=== PATIENT | female | born 1975 | race Caucasian/White ===

== ENCOUNTER 2020-02-29 23:25 | Emergency (ER) | payer MEDICARE, SELFPAY ==
[2020-02-29 23:31] VITALS: BP 157/48; PULSE 119; RESP 20; TEMP 37.1; O2SAT 97
--- NOTE | 2020-02-29 23:45 | DI.CT_ITS ---
EXAM: CT ABDOMEN PELVIS W CLINICAL HISTORY: abdominal pain, left sided. COMPARISON: No exams were available for comparison FINDINGS: CT examination of the abdomen and pelvis was performed with intravenous infusion of 100 cc of Omnipaq ue 350. Images obtained through the lung bases are unremarkable. The liver and spleen appear normal as visualized, although portions of the spleen are obscured by met allic artifact. Splenic contour is lobulated laterally, consistent with known prior splenic injury. N o prior films available for comparison. No free fluid in the left upper quadrant or elsewhere in the abdomen. No gross splenic hematoma. Pancreas appears normal. Gallbladder and bile ducts are CT normal. Adrenals and kidneys are unremarka ble. No urinary tract calcification or obstruction. No renal mass. Urinary bladder is nearly empty. Abdominal wall intact with no hernia except for a tiny fat containing umbilical hernia. The appendix is normal. There is a moderate quantity of fecal material throughout the colon. No diver ticulitis or bowel obstruction. Mild prominence of small bowel wall in the jejunal region, question e nteritis. Abdominal aorta is of normal diameter and no major vascular abnormality is seen. Uterus is mildly enlarged and heterogeneous consistent with uterine fibroid. The ovaries have a emily l follicular appearance. IMPRESSION: No evidence of acute intra-abdominal process except for slight nonspecific wall thickening of the jej unum, consider enteritis.
--- NOTE | 2020-03-01 00:10 | W.ED.GENAD ---
Discharge Plan Disposition Patient Disposition: HOME Condition: Good Discharge Details Chief Complaint: GI Bleed Clinical Impression: Abdominal pain Primary Care Provider: None,None ED Provider: Geraldo Schmitt Meds and New Rx's Prescriptions: No Action melatonin 10 mg Tablet 30 mg PO HS PRNRF: 0 Discharge Instructions Instructions: Abdominal Pain (ED) Additional Instructions: Work-up tonight with nothing significantly found. Laboratory studies for the most part look fine. CT scan suggest possible right ovarian cyst and uterine fibroid. These can be evaluated by ultrasound on an outpatient basis. We will have care management help establish primary care here in the area. Will need follow-up with him in the next few weeks. Return to ED for fever, persistent vomiting, grossly bloody stool, worsening abdominal pain, difficulty breathing, other concerns or problems. Referrals: Care Management [Provider Group] Discharge Data Discharge Date/Time-TO BE ENTERED AT DEPARTURE: 03/01/20 01:30 Medical Decision Making <HENRY Jones - Last Filed: 03/02/20 23:20> Is a 44-year-old patient presenting to the emergency room this evening for concerns of an episode of rectal bleeding which occurred this evening. Patient reports when she was wiping after moving her bowels she had a moderate amount of bright red blood noted on the toilet paper. Patient does report clots associated. Denies any blood in the toilet bowl. Patient reports a single episode noted. Patient is complaining of abdominal bloating in the last 2 days. Patient is complaining of left-sided abdominal pain. Patient reports chronic nausea unchanged. Denies obvious vomiting. Has been eating and drinking without difficulty. Patient denies any obvious dizziness, lightheadedness or feeling of passing out. Patient denies any history of rectal bleeding in the past. Patient does report mild radiation of pain to the left shoulder. Patient does report a history of splenic laceration resulting from trauma. Patient denies obvious chest pain, difficulty breathing or shortness of breath at this time. Denies upper respiratory symptoms. Patient does report mild left flank pain. Denies dysuria, urgency or frequency of urination. Patient does report intermittent night sweats. Patient reports night sweats preceded IV drug use. Patient denies any measured fevers or chills but does report night sweats. No complaints of cough. Denies travel. Patient admits to using heroin intermittently for the last 2 weeks. Patient's history is scattered, required significant focusing of her HPI. Patient has several complaints which have been either transient or intermittent. Patient has no PCP currently. When I have asked this patient to focus the reasons for which she comes to the emergency room today she reports her primary complaint is related to her episode of rectal bleeding associated abdominal pain and bloating for the last 2 days. On exam patient is noted to be tachycardic with a heart rate of 119 although is appearing extremely anxious. We will plan to recheck and provide IV fluids. Patient has no notable increase in respiratory effort or difficulty breathing. Has clear breath sounds currently. No murmur present. Patient has no significant CVA tenderness bilaterally. Patient has no obvious abdominal distention although she reports her abdomen feels bloated. Patient's abdomen is soft. She does have notable abdominal pain with palpation of the left upper and left lower quadrants. Patient has no significant right-sided abdominal pain with palpation. Lacks peritoneal signs, rebound or guarding. No evidence of abdominal bruising. Rectal exam does reveal mild hemorrhoid swelling but no active bleeding or thrombosis. No obvious rectal pain on exam. Rectal tone present normal. guaiac testing is positive. No trevon blood noted Patient status post hysterectomy. Urine negative. Ready for CT We will plan to check baseline labs, include lipase and check CT of patient's abdomen due to complaints of abdominal pain. Will provide 1 L of IV fluid given patient's vital signs and tachycardia. Patient's initial labs reveal no leukocytosis or shift. Sodium noted to be 134, potassium 5.2. Patient's BUN noted to be 24, creatinine 1.22 and GFR 48. Patient's LFTs are normal, bilirubin normal. Lipase is normal. Urinalysis reveals no nitrites or leukocyte esterase, small amount of blood, contaminated urine sample. Urine casts are noted. Patient signed out pending ultimate disposition, CT results. <Geraldo Schmitt MD - Last Filed: 03/01/20 01:28> Patient signed out to me pending labs and CAT scan. She had presented with a myriad of complaints but chief complaint and what brought her in was some rectal bleeding and abdominal pain. Initially tachycardic but also quite anxious. Not febrile here. At time of my reevaluation she is sitting comfortably on the stretcher doing a word find. She is requesting discharge. Her laboratory studies are unremarkable except for some elevated kidney function which may be related to some mild dehydration. She has received IV fluids here and is drinking orally without difficulty. CT scan of the abdomen pelvis mostly unremarkable. Evidence of a probable right ovarian cyst as well as anterior uterine fibroid. These can be evaluated by ultrasound as outpatient. She is living up here now. She does not have primary care established. Will be discharged home tonight. Will have care management work on finding her primary care for follow-up in the next few weeks. She may return to ED for any worsening abdominal pain, vomiting, grossly bloody diarrhea, fever other concerns or problems. Lab Data Lab results reviewed: Yes I reviewed the patient's lab results. HPI <HNERY Jones - Last Filed: 03/02/20 23:20> General Date/Time Provider Initiated Documentation: 02/29/20 23:30. HPI Narrative: Patient is a 44-year-old presenting to the emergency room for complaints of rectal bleeding tonight which was noted when she wiped. Patient reports a large amount of blood with clots on the toilet paper but denies blood in the toilet bowl. Patient does not feel this was related to vaginal bleeding. Patient is complaining of left-sided abdominal pain. Patient does report radiation of the pain toward her left shoulder. Patient is complaining of abdominal bloating in the last 2 days. Patient is a current heroin user, has been using for the last 2 weeks. Has used today. Patient reports complaints of cold sweats at night. Denies any measured fevers. Patient denies chest pain or difficulty breathing at this time. Patient does report some left-sided flank pain. Patient describes this left-sided flank pain is with deep breathing. Patient denies any history of rectal bleeding historically. Patient denies any dizziness currently. Patient reports she does have a history of splenic laceration secondary to trauma. Patient describes her abdominal pain is somewhat intermittent. Has been able to eat and drink without difficulty. Denies obvious changes in her stool. Patient does report some worsening abdominal pain with attempting to have bowel movements. Patient describes abdominal pain when moving bowels in the lower abdomen. Denies obvious rectal pain with bowel movements. Denies dizziness, weakness, fatigue or feeling of syncope. Related Data Home Medications Medication Instructions Recorded Confirmed melatonin 30 mg PO HS PRN 03/01/20 03/01/20 Allergies Allergy/AdvReac Type Severity Reaction Status Date / Time aspirin Allergy Anaphylaxsi Unverified 03/01/20 00:13 s acetaminophen [From Tylenol] AdvReac Anaphylaxsi Unverified 03/01/20 00:13 s General Stated Complaint: GI Bleed LEOBARDO: 3 Review of Systems <HENRY Jones - Last Filed: 03/02/20 23:20> All systems reviewed & are unremarkable except as noted in HPI and below Constitutional Constitutional: Denies chills, Denies fever(s), Reports headache(s) (Intermittent), Reports night sweats and Denies poor appetite ENT Ears, Nose, Mouth, and Throat: Denies vertigo, Denies dizziness, Reports headache(s) (Intermittent), Denies nasal congestion and Denies sore throat Cardiovascular Cardiovascular: Denies syncope and Denies dyspnea Respiratory Respiratory: Denies cough, Reports pain on inspiration (Left flank), Denies dyspnea and Denies wheezing Gastrointestinal Gastrointestinal: Reports abdominal pain (Left-sided), Reports hematochezia (This evening when wiping), Denies change in bowel habits, Denies change in stool character, Denies constipation, Denies heartburn, Denies diarrhea, Reports nausea (Patient reports this is chronic, unchanged) and Denies vomiting Genitourinary Genitourinary: Denies abnormal menses, Denies abnormal vaginal bleeding, Denies amenorrhea, Denies hematuria, Denies difficulty voiding, Denies urinary hesitancy and Denies urinary urgency Neurologic Neurologic: Denies vertigo, Denies dizziness, Denies syncope and Reports headache(s) (Intermittent) Allergic/Immunologic Allergic/Immunologic: Denies wheezing PFSH <HENRY Jones - Last Filed: 03/02/20 23:20> Medical History (Updated 03/01/20 @ 01:26 by Geraldo Schmitt MD) Hepatitis C (Chronic) Heroin abuse (Acute) Lung tumor (Acute) Spleen disorder (Acute) Surgical History (Updated 03/01/20 @ 01:03 by Esha Sheikh) Tubal ligation status (Acute) Social History Drug use: Binges Substance use type: heroin Details: pt purchasing methoadone and suboxone on the street to try to detox herself. Pt states she used heroin two weeks ago Do you feel safe at home: Yes Do you feel safe in your relationship?: Yes Additional Social history: living at [facility] with boyfriend Exam <HENRY Jones - Last Filed: 03/02/20 23:20> Narrative Exam Narrative: CONST: Well hydrated. Alert and oriented. HENMT: Head nomocephalic, normal to inspection. Atraumatic. Hearing grossly normal. Oral mucosa normal. Tounge normal. Normal posterior oropharynx. Uvula midline. EYES: General normal appearance. Alignment normal. Eyelids normal. Conjunctiva normal. Sclera normal. Constricted pupils NECK: Normal visual inspection. FROM. No lymphadenopathy. Trachea midline. No Midline tenderness. CHEST: Normal insepection of the chest. RESP: Normal respiratory effort. Speaking full sentences. No cough. No wheezing. No retractions. Clear to auscaltation. Breath sound equal and present bilaterally. CARDIO: No JVD. Normal PMI. Regular Rate. Regular Rhythm. Normal peripheral pulses. No murmur GI: Normal inspection of abdomen. No distension. Soft. Moderate abdominal tenderness noted in the left upper quadrant and left lower quadrant. Bowel sounds present in all 4 quadrants. No rebound. No gaurding. MUSCULOSKELETAL: Normal Gait. FROM of all extremities. No distal edema of lower extremities present. SKIN: Normal. Dry. No rashes. Areas of recent IV drug use noted. No signs of surrounding cellulitis or abscess NEURO: Alert and awake. Speech clear. PSYCH: Anxious. Cooperative. Course <HENRY Jones - Last Filed: 03/02/20 23:20> Vital Signs Vital signs: Vital Signs Temperature 37.1 C 02/29/20 23:31 Pulse 119 H 02/29/20 23:31 Respiratory Rate 20 02/29/20 23:31 Blood Pressure 157/48 H 02/29/20 23:31 Pulse Oximetry 97 02/29/20 23:31 Temperature 37.1 C 02/29/20 23:31 Temperature Source Skin 02/29/20 23:31 Pulse 119 H 02/29/20 23:31 Respiratory Rate 20 02/29/20 23:31 Respiratory Effort Non-Labored 02/29/20 23:36 Blood Pressure 157/48 H 02/29/20 23:31 Pulse Oximetry 97 02/29/20 23:31 Pain Level 9 02/29/20 23:31 Lab/Test Results Lab/Test Results: Laboratory Tests Range/Units 03/01/20 23:56 Serum HCG, Qual Cancelled Sign Out <HENRY Jones - Last Filed: 03/02/20 23:20> Sign Out Data: Sign Out Comment: Signout pending CT results and disposition. Last updated by Brittney Packer PA at 03/01/20 00:52
[2020-03-01 00:16] LABS: Bilirubin Negative (Negative); Blood Small (Negative); Clarity Cloudy (Clear); Glucose Negative (Negative); Ketones Negative (Negative); Leukocyte Esterase Negative (Negative); Nitrite Negative (Negative); Specific Gravity >= 1.030 (1.005-1.025); Urobilinogen 0.2 EU/dL (Up TO 0.2)
[2020-03-01 00:23] LABS: Abs Immature Grans 0.03 k/cumm (0.0-0.09); Absolute Basophil Count 0.04 k/cumm (0.0-0.2); Absolute Eosinophil Count 0.32 k/cumm (0.0-0.7); Absolute Lymphocyte Count 2.82 k/cumm (1.2-3.4); Absolute Monocyte Count 0.71 k/cumm (0.11-0.7); Absolute Neutrophil Count 4.65 k/cumm (1.2-6.7); Basophils % 0.5; Eosinophils % 3.7; HCT 36.2 % (36.0-46.0); HGB 12.1 g/dL (12.0-15.5); Immature Grans % 0.4 %; Lymphocytes % 32.9; Mean Corp. HGB Concentration 33.4 g/dL (32.0-36.0); Mean Corpuscular Hemoglobin 28.4 pg (27.0-33.0); Mean Platelet Volume 11.7 fL (8.0-11.0); Monocytes % 8.3; Neutrophils % 54.2; Platelet Count 147 x1000/uL (130-400); RBC 4.26 m/cumm (4.00-5.20); RBC Distribution Width 15.3 % (11.7-14.6); White Blood Cell Count 8.57 k/cumm (4.4-10.8)
[2020-03-01 00:29] LABS: Bacteria Few HPF (Negative); C & S Indicated? No/Sq. Contamination; Crystals Negative HPF (Negative); Epithelial Cells Many HPF (Negative); Mucus Trace (Negative); RBC 0-2 HPF (0-2)
[2020-03-01] MEDS: Omnipaque 350 MG/ML 100 ML BTL IJ (00:30)
[2020-03-01 00:39] LABS: ALT 20 U/L (14-59); AST 34 U/L (15-37); Albumin 3.6 g/dL (3.4-5.0); Alkaline Phosphatase 73 U/L (46-116); Anion Gap 8.7 mmol/L (3-11); BUN 24 mg/dL (7-18); Bilirubin, Total 0.2 mg/dL (0.2-1.0); CO2 22.3 mmol/L (21.0-32.0); CREATININE 1.22 mg/dL (0.55-1.02); Calcium 8.4 mg/dL (8.5-10.1); Chloride 103 mmol/L (98-107); Glucose 88 mg/dL (74-106); Lipase 94 U/L (73-393); Sodium 134 mmol/L (136-145); Total Protein 8.1 g/dL (6.4-8.2)
[2020-03-01 00:40] LABS: Potassium 5.2 mmol/L (3.5-5.1)
[2020-03-01] MEDS: Normal Saline 1,000 ML 1000 ML IV (00:50)
[2020-03-01] MEDS: Normal Saline - Diluent 50 ML VIAL IV (00:50)
[2020-03-01] MEDS: Normal Saline Flush 10 ML SYR IVP (00:51)
--- NOTE | 2020-03-01 01:07 | DI.VRAD_ITS ---
PROCEDURE INFORMATION: Exam: CT Abdomen And Pelvis With Contrast Exam date and time: 02/29/2020 12:39 AM Age: 44 years old Clinical indication: Localized; Prior surgery; Surgery date: 6+ months; Surgery type: Spleen ruptured twice, tubal ligation; Patient HX: Left sided abdominal pain, nausea, blood in stool TECHNIQUE: Imaging protocol: Computed tomography of the abdomen and pelvis with intravenous contrast. Radiation optimization: All CT scans at this facility use at least one of these dose optimization techniques: automated exposure control; mA and/or kV adjustment per patient size (includes targeted exams where dose is matched to clinical indication); or iterative reconstruction. Contrast material: OMNIPAQUE 350; Contrast volume: 100 ml; Contrast route: IV; COMPARISON: No relevant prior studies available. FINDINGS: Lungs: Stranded soft tissue density at the lateral left lung base is consistent with postinflammatory change with minimal focal scarring also seen at the anterior right lung base and posteromedial left lung base. Heart size is normal and no pleural or pericardial effusions are detected. Liver: Liver is normal in size and configuration with no focal hepatic lesions detected. Gallbladder and bile ducts: Gallbladder is normal in appearance and there is no abnormal dilatation of intrahepatic biliary radicles. Pancreas: No pancreatic mass or evidence of inflammatory process. Spleen: Surgical clips are seen at the splenic hilum and no discrete splenic mass identified. Adrenals: Normal appearance bilaterally. Kidneys and ureters: Kidneys demonstrate bilateral excretion of contrast material without hydronephrosis or renal mass. Ureters are normal in course and caliber bilaterally. Stomach and bowel: Segments of large and small bowel are normal in appearance and there is no evidence of obstruction or perforation. Appendix: No evidence of appendicitis. Intraperitoneal space: No free intraperitoneal fluid or evidence of pneumoperitoneum detected. Vasculature: The abdominal aorta tapers distally to the bifurcation without aneurysm. Lymph nodes: No adenopathy detected. Bladder: Nondistended but otherwise unremarkable. Reproductive: 11 mm hypodensity in the anterior right adnexal region may represent ovarian cyst and a 17 mm ovoid hypodensity involving the anterior myometrium inferiorly may represent a uterine fibroid. Bones/joints: No acute osseous lesions are detected. Soft tissues: Unremarkable. IMPRESSION: 1. A suspected 11 mm right ovarian cyst and probable 17 mm anterior uterine fibroid could be followed sonographically. 2. There is no other evidence of an acute abdominal pelvic process. Dictated and Authenticated by: Benito Anglin MD. Ordering:TARIQ Lugo MD
[2020-03-01 01:22] VITALS: BP 128/62; PULSE 93; RESP 16; O2SAT 98
--- NOTE | 2020-03-01 01:22 | NUR.NOTE ---
Nursing Note:COPY MADE AND PUT IN BOX FOR CM TO ESTABLISH PCP AND MAKE APPT WITHIN NEXT COUPLE OF WEEKS
--- NOTE | 2020-03-01 10:55 | CMPROGNOTE_ITS ---
- If Service Date Differs Date of service: 03/01/20 Time of Service: 10:55 Care Management Progress Note Sherin was seen in the ED for possible GI Bleed. At the ED provider's request, CM coordinated a referral to [facility] to assist patient in establishing care with a PCP.
== END 2020-03-01 01:30 | disposition home or self-care (01) ==
PROVIDERS: Physician Assistant; Emergency Provider Emergency Medicine
DX: R10.12 Left upper quadrant pain (principal); R10.32 Left lower quadrant pain; R93.5 Abnormal findings on diagnostic imaging of other abdominal regions, including retroperitoneum
CPT/HCPCS: 80053; 81025; 83690; 96360; 99285; 74177; 81003; 81015; 84703; 85025; 99284; J3490

== ENCOUNTER 2022-07-01 00:39 | Inpatient (IN) | payer MEDICARE, SELFPAY ==
[2022-07-01] VITALS (30 sets, daily range): BP systolic 106–177; BP diastolic 61–140; PULSE 75–113; RESP 9–26; TEMP 36.4–36.7; O2SAT 96–98
--- NOTE | 2022-07-01 00:34 | NUR.NOTE ---
Nursing Note: Patient states I need to call my fiance so I can leave. When further questioned patient states I hate hospitals. Patient given cordless phone to place phone call. Patient kicked the provider out of the room during assessment so she can make a phone call.
--- NOTE | 2022-07-01 00:48 | ED.GENADUL_ITS ---
Discharge Plan Disposition Patient Disposition: [facility] INPATIENT Condition: Stable Discharge Details Chief Complaint: Abd Prob Clinical Impression: Depression, Nausea & vomiting, Acute hypokalemia, Abdominal pain Primary Care Provider: None,None ED Provider: Phil Trevino Medical Decision Making 46 yo female with hx of substance abuse who states she relapsed into opiates a month or so ago comes in with n/v since Friday. She states she started to use iv fentanyl and also smoking cocaine. She states she started to have n/v Friday and occurred throughout the weekend. She used fentanyl and cocaine aroud 11pm and made her feel mildly better, called ems and was brought here. She states when she does vomit she has upper abdomen pain. She denies chest pain, dyspnea, fevers, chills. She is in no distress, has as soft nontender abdomen, normal motor and sensation. Suspect this is likely related to her drug use, will check cbc, cmp, treat with zofran and ativan as she does appear mildly anxious and reassess. Given lack of abdomen tenderness do not feel ct abdomen/pelvis indicated pt stated she was having severe ruq pain and on reassessment is tender in the ruq. discussed with her and will order ct, she states she has had a tubal ligation and denies chance of imaging shows no acute findings, she is still not tolerating po. she appears to have acute hepatitis on labs and k of 2.8, repletion ordered. She did make vague statements that she has had thoughts of self harm due to relationship issues. She can't be medically cleared yet as she has electrolyte abnormalities and acute hepatitis not tolerating po. cpso ordered, discussed with hospitalist, will admit for continued management and [facility] screening when medically cleared Differential Diagnosis Differential Diagnosis: drug withdrawal vs drug reaction, electrolyte abnormality Imaging Data Radiologic Study: Attestation: I personally reviewed and interpreted this imaging study as follows: Imaging: CT Scan Radiologist's impression: IMPRESSION: 1. 1.1 cm right ovarian follicle with an adjacent 1.5 cm peripherally enhancing right ovarian corpus luteum. No gross free pelvic fluid. 2. Moderate gallbladder distention. No calcified gallstones or biliary dilatation. 3. No acute bowel pathology demonstrated. Lab Data Lab results reviewed: Yes I reviewed the patient's lab results. HPI General Mode of arrival: EMS . Date/Time Provider Initiated Documentation: 07/01/22 00:47 . Limitations to Documentation: no limitations . Information obtained by: patient . History of Present Illness 46 year old F presents to the emergency department with the chief complaint of n/v, described as moderate, Patient started experiencing this day(s) (2) and it has been constant. No relieving factors improve symptom(s), No exacerbating factors reported . Patient notes no other symptoms.. Patient did receive the following treatments prior to arrival, none Related Data Allergies Allergy/AdvReac Type Severity Reaction Status Date / Time aspirin Allergy Anaphylaxsi Unverified 07/01/22 00:27 s acetaminophen [From Tylenol] AdvReac Anaphylaxsi Unverified 07/01/22 00:27 s General Stated Complaint: Abd Prob LEOBARDO: 3 Review of Systems All systems reviewed & are unremarkable except as noted in HPI and below Constitutional Constitutional: Denies chills, Denies fever(s) and Denies weakness Eyes Eyes: Denies loss of vision Cardiovascular Cardiovascular: Denies chest pain and Denies dyspnea Respiratory Respiratory: Denies cough and Denies dyspnea Genitourinary Genitourinary: Denies dysuria Musculoskeletal Musculoskeletal: Denies joint swelling Neurologic Neurologic: Denies loss of vision and Denies weakness PFSH All Active Problems (Updated 07/01/22 @ 03:13 by Phil Trevino MD) Depression (Chronic) Nausea & vomiting (Acute) Acute hypokalemia (Acute) Abdominal pain (Acute) Medical History (Updated 07/01/22 @ 03:13 by Phil Trevino MD) Hepatitis C Heroin abuse Lung tumor Spleen disorder Surgical History (Updated 03/01/20 @ 01:03 by Esha Manley) Tubal ligation status Social History Smoking/Tobacco Use Status: Current every day Tobacco Type: cigarettes Smoking risk assessment performed?: Yes Alcohol Intake: never Drug use: Binges Substance use type: crack/cocaine and heroin Details: pt purchasing methoadone and suboxone on the street to try to detox herself. Pt states she used heroin two weeks ago Do you feel safe at home: Yes Do you feel safe in your relationship?: Yes Additional Social history: living at [facility] with boyfriend Exam Const General: no acute distress Orientation: alert HENMT Head: normal to inspection Ears: external ears normal General nose exam: external nose normal Mouth: moist mucous membranes Eyes General: appearance normal, both eyes and all related structures Neck Neck: normal visual inspection Resp Effort & Inspection: normal respiratory effort and able to speak in complete sentences Cardio Rate: regular rate GI Palpation: soft and nontender Skin General skin exam: no rashes or lesions noted Neuro General: patient alert and patient oriented x3 Extrem General: normal to inspection Psych Mental Status: mental status grossly normal Course Vital Signs Vital signs: Vital Signs Temperature 36.6 C 07/01/22 00:20 Pulse 102 H 07/01/22 00:20 Respiratory Rate 16 07/01/22 00:20 Blood Pressure 176/93 H 07/01/22 00:20 Pulse Oximetry 98 07/01/22 00:20 Temperature 36.6 C 07/01/22 00:20 Temperature Source Temporal Artery Scan 07/01/22 00:20 Pulse 102 H 07/01/22 00:20 Respiratory Rate 16 07/01/22 00:20 Respiratory Effort Non-Labored 07/01/22 00:24 Blood Pressure 176/93 H 07/01/22 00:20 Blood Pressure Position Supine 07/01/22 00:20 Pulse Oximetry 98 07/01/22 00:20 Oxygen Delivery Method Room Air 07/01/22 00:20 Oxygen Flow Rate 0 07/01/22 00:20 Pain Level 9 07/01/22 00:24
[2022-07-01 01:06] LABS: Abs Immature Grans 0.07 10^3/uL (0.0-0.06); Absolute Basophil Count 0.11 10^3/uL (0.0-0.2); Absolute Monocyte Count 1.24 10^3/uL (0.1-0.8); Basophils % 0.7; Eosinophils % 0.1; HCT 31.3 % (36.0-46.0); HGB 9.1 g/dL (11.2-15.7); Immature Grans % 0.5; Lymphocytes % 14.4; MCH 17.9 pg (27.0-33.0); MCHC 29.1 % (32.0-36.0); MCV 62 fL (80-95); MPV 9.9 fL (8.0-11.0); Neutrophils % 76.3; RBC 5.09 10^6/uL (3.93-5.22); RDW 20.1 % (11.7-14.6); RDW-SD 41.5 fL; WBC 15.51 10^3/uL (4.4-10.8)
[2022-07-01 01:09] LABS: Absolute Eosinophil Count 0.02 10^3/uL (0.0-0.7); Absolute Lymphocyte Count 2.23 10^3/uL (1.2-3.4); Absolute Neutrophil Count 11.83 10^3/uL (1.2-6.7)
[2022-07-01] MEDS: LORazepam 20 MG/10 ML VIAL IVP ×3 (01:20→08:55)
[2022-07-01] MEDS: Ondansetron 4 MG/2 ML VIAL IVP (01:21)
[2022-07-01] MEDS: Normal Saline 1,000 ML 1000 ML IV (01:21)
[2022-07-01 01:22] LABS: Albumin 4.1 g/dL (3.4-5.0); Alkaline Phosphatase 105 U/L (46-116); Anion Gap 13.7 mmol/L (3-11); BUN 26 mg/dL (7-18); Bilirubin, Total 0.6 mg/dL (0.2-1.0); CO2 25.3 mmol/L (21.0-32.0); CREATININE 1.5 mg/dL (0.55-1.02); Calcium 9.2 mg/dL (8.5-10.1); Chloride 94 mmol/L (98-107); Estimated GFR 37.55 (mL/min/1.73m2); Glucose 129 mg/dL (74-106); Magnesium 1.8 mg/dL (1.8-2.4); Sodium 133 mmol/L (136-145); Total Protein 9.4 g/dL (6.4-8.2)
--- NOTE | 2022-07-01 01:30 | DI.CT_ITS ---
Exam(s) CT ABDOMEN PELVIS W EXAM: CT ABDOMEN PELVIS W CLINICAL HISTORY: abdominal pain TECHNIQUE: Imaging Protocol: Axial computed tomography images with coronal and sagittal reformatted images were created and reviewed CONTRAST MATERIAL: Intravenous: Omnipaque 350 Contrast volume:100 mL Oral: No COMPARISON: CT CT ABDOMEN PELVIS W from 03/01/2020 FINDINGS: ABDOMEN: Lung Bases: Normal where visualized. Liver: Normal density. No measurable mass. Portal, Superior Mesenteric, and Splenic Veins: Unremarkable. Gallbladder and Biliary Tract: No radiodense calculus or dilation. Pancreas: Normal density, no abnormal calcifications or inflammatory process. Spleen: Normal. Adrenals: No masses seen. Kidneys: Normal size, contour and axis. No radiodense stones or obstructive uropathy. No masses seen. Abdominal Aorta: Abdominal portion non-dilated. Bowel: No obstruction or bowel wall thickening. No evidence of appendicitis. Peritoneal Cavity: No ascites, collection or mesenteric inflammatory response. No free air. Lymph Nodes: Within normal limits. Bones: Within normal limits for the patient's age. Soft Tissues: Unremarkable. PELVIS: Bladder: Symmetric distention, no gross wall thickening. Reproductive Organs: There is a round 2.1 cm uterine mass likely reflecting a fibroid. This was pres ent on the prior examination. Lymph Nodes: Within normal limits. Bones: Within normal limits for the patient's age. IMPRESSION: No acute abdominal or pelvic process. RADIATION DOSE DELIVERED: 842.8mGy.cm Total DLP DATA REPOSITORY: All CT scans at this facility are submitted to the National Radiology Data Registry (NRDR) Dose Index Registry (DIR) with the [employer] (ACR). RADIATION OPTIMIZATION: All CT scans at this facility use at least one of these dose optimization te chniques: automated exposure control; mA and/or kV adjustment per patient size (includes targeted exa ms where dose is matched to clinical indication); or iterative reconstruction.
[2022-07-01 01:36] LABS: Diff Comment RBC Morph Reviewed; Platelet Count 780 10^3/uL (130-400)
[2022-07-01 01:37] LABS: Anisocytosis 2+; Microcytosis 2+
[2022-07-01 01:39] LABS: Potassium 2.8 mmol/L (3.5-5.1)
[2022-07-01 01:52] LABS: ALT 1972 U/L (14-59); AST 2126 U/L (15-37); ETHANOL BLOOD < 3.0 mg/dL (<10)
[2022-07-01] MEDS: Omnipaque 350 MG/ML 100 ML BTL IJ (01:58)
[2022-07-01] MEDS: Normal Saline Flush 10 ML SYR IVP ×2 (02:16→08:54)
[2022-07-01] MEDS: POTASSIUM CHLORIDE 20 MEQ/100 ML BAG 50 MEQ (02:29)
--- NOTE | 2022-07-01 02:40 | DI.VRAD_ITS ---
PROCEDURE INFORMATION: Exam: CT Abdomen And Pelvis With Contrast Exam date and time: 07/01/2022 2:01 AM Age: 46 years old Clinical indication: Nausea and vomiting; Abdominal pain; Localized; Left; Prior surgery; Surgery date: 6+ months; Surgery type: HX of spleen rupture TECHNIQUE: Imaging protocol: Computed tomography of the abdomen and pelvis with contrast. Radiation optimization: All CT scans at this facility use at least one of these dose optimization techniques: automated exposure control; mA and/or kV adjustment per patient size (includes targeted exams where dose is matched to clinical indication); or iterative reconstruction. Contrast material: OMNIPAQUE 350; Contrast volume: 100 ml; Contrast route: INTRAVENOUS (IV); COMPARISON: CT ABDOMEN PELVIS W 03/01/2020 12:24 AM FINDINGS: Liver: Possible fatty infiltration of the liver, difficult to confidently diagnose by CT imaging after administration of intravenous contrast. Gallbladder and bile ducts: Moderate gallbladder distension. No calcified gallstones or biliary dilatation. Pancreas: Normal appearing pancreas. Spleen: Mild morphologic deformity of the spleen in keeping with the provided history of prior splenic injury. Surgical material adjacent to the spleen. Correlation with surgical history recommended. Adrenal glands: Normal appearing adrenal glands. Kidneys and ureters: Normal appearing kidneys. No hydronephrosis. No obstructing ureteral stones. Stomach and bowel: No oral contrast. Stomach partially decompressed. No small bowel dilatation to suggest obstruction. Cecum located in the right upper quadrant suggesting free mobility on an independent mesentery. Normal-appearing colon. No evidence of diverticulitis or colitis. Appendix: Normal appendix, unusually located in the anterior mid abdomen. Intraperitoneal space: No gross ascites or free air. Vasculature: Normal caliber abdominal aorta. Lymph nodes: No pathologically enlarged mesenteric, retroperitoneal, or pelvic sidewall lymph nodes. Urinary bladder: Urinary bladder partially collapsed but grossly unremarkable, as seen. Reproductive: Anteverted uterus, normal in size. 1.8 cm x 1.9 cm x 2.1 cm relatively hyperdense masslike finding in the anterior uterine wall, image 49 of series 6, possibly a leiomyoma but not well characterized by the current exam. Ovaries partially obscured but normal in size. 1.1 cm right ovarian follicle with an adjacent 1.5 cm peripherally enhancing right ovarian corpus luteum. Bones/joints: No acute fracture seen among the bones of the abdomen or pelvis. Spinal degenerative change with small Schmorl's nodes at several levels. Soft tissues: Tiny fat-containing ventral hernia at the umbilicus, doubtful clinical significance. IMPRESSION: 1. 1.1 cm right ovarian follicle with an adjacent 1.5 cm peripherally enhancing right ovarian corpus luteum. No gross free pelvic fluid. 2. Moderate gallbladder distention. No calcified gallstones or biliary dilatation. 3. No acute bowel pathology demonstrated. Dictated and Authenticated by: Gadiel Ferguson MD. Ordering:[id number] Villarreal MD
[2022-07-01 02:53] LABS: HCG Qual (Serum) Negative
[2022-07-01 03:04] LABS: Salicylate < 2.8 mg/dL (<2.8)
[2022-07-01 03:05] LABS: Acetaminophen < 2 ug/mL (10-30)
[2022-07-01 04:02] LABS: INR 1.5 (0.9-1.1); PTT Activated 26.3 sec (21.0-27.5); Prothrombin Time 14.3 sec (9.3-11.0)
[2022-07-01] MEDS: Normal Saline 1,000 ML 150 ML IV (04:30)
--- NOTE | 2022-07-01 06:09 | HPE_ITS ---
Date of service: 07/01/22 Time of Service: 06:10 Assessment and Plan Assessment and plan (1) Abdominal pain: Start date: 07/01/22 Status: Acute Assessment and plan: This is a 46-year-old lady with presentation of abdominal pain with nausea and vomiting along with dehydration secondary to fluid loss over the last 4 days. She is having right upper quadrant abdominal pain and we will consult surgery with ultrasound of the gallbladder to be performed this morning. CT of the abdomen was abnormal but difficult to assess for acute processes. IV hydration and follow-up labs trending liver functions and electrolytes repleting electrolytes as needed. She is a full code. (2) Nausea & vomiting: Start date: 07/01/22 Status: Acute Assessment and plan: Antiemetics and IV hydration with bowel rest. Patient will be placed on PPI. (3) Acute hepatitis: Start date: 07/01/22 Status: Acute Assessment and plan: Acute elevation of ALT and AST with PT/INR also elevated but bilirubin normal. This appears to be an acute process with hepatitis screen sent for evaluation. Patient has a history of previous hep C infection which was treated and cleared but is now reusing IV street drugs. (4) Acute hypokalemia: Start date: 07/01/22 Status: Acute Assessment and plan: Replete with IV fluids and monitor labs and supplement as indicated. (5) Depression: Status: Chronic Assessment and plan: Patient has chronic depression and is expressing some thoughts of harming self or suicidal ideation which should be evaluated once medically cleared. No seeking mental health will be consulted by the day hospitalist once stabilized. History of Present Illness History of Present Illness Chief Complaint: Nausea and vomiting for 3 days with no intake for 3 to 5 days Narrative: This is a 46-year-old female patient who presented to the ED after a relapse of using illicit opioids over the last month with patient having poor intake with nausea and vomiting for 4 days prior to presentation. She was using IV fentanyl from the streets and smoking cocaine. She began to have problems keeping food down as stated and use fentanyl with rescue cocaine just prior to presenting to the ED feeling slightly better. She was found by EMS and the patient stated when she was vomiting she had upper abdominal pain which is mostly in the right upper quadrant. She does still have her gallbladder. She does not have any chest pain or fever and no chills. In the ED she did not have a surgical abdomen and labs did reveal markedly elevated liver functions with normal bilirubin and alkaline phosphatase but elevated PT/INR. She does have a history of hepatitis C in the past but states that she has not been diagnosed or evaluated recently. She does give a history of having hemochromatosis which is not followed. 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 In the ED she was also complaining of depression and thoughts of hurting herself or suicidal ideation and would need to be seen by [facility] for evaluation when she was medically cleared. At the time I saw the patient she was having pressured speech and is a very poor historian wandering in conversation. She was awake and comfortable with IV hydration. Lab in the ED did reveal leukocytosis which was mild with elevated ALT and AST over 1000 as well as PT/INR at 1.5. She had potassium which was low at 2.8 with supplement being given and a creatinine was higher than her baseline at about 1.5. Patient is a full code. Review of Systems Narrative: 13 point review of systems otherwise unrevealing or unobtainable with patient having wandering conversation and being poor historian. PFSH All Active Problems Polysubstance use disorder (Acute) Anemia (Chronic) Thrombocytosis (Acute) DALIA (acute kidney injury) (Acute) Hypokalemia (Acute) Acute liver failure due to drug (Acute) Acute hepatitis (Acute) Depression (Chronic) Nausea & vomiting (Acute) Acute hypokalemia (Acute) Abdominal pain (Acute) Medical History Hepatitis C Heroin abuse Lung tumor Spleen disorder Surgical History Tubal ligation status Social History Smoking/Tobacco Use Status: Current every day Tobacco Type: cigarettes Smoking risk assessment performed?: Yes Alcohol Intake: never Drug use: Binges Substance use type: crack/cocaine and heroin Details: pt purchasing methoadone and suboxone on the street to try to detox herself. Pt states she used heroin two weeks ago Do you feel safe at home: Yes Do you feel safe in your relationship?: Yes Additional Social history: living at [facility] with boyfriend Meds Allergies and Home Medications Allergies Allergy/AdvReac Type Severity Reaction Status Date / Time aspirin Allergy Anaphylaxsi Unverified 07/01/22 00:27 s acetaminophen [From Tylenol] AdvReac Anaphylaxsi Unverified 07/01/22 00:27 s Exam Narrative Exam Narrative: General: Patient appears older than stated age, moderate distress and disheveled, alert and oriented at least to person place. HEENT: Normocephalic, eyes with pupils equal and reactive to light symmetrically, extraocular movement intact and sclera anicteric. Poor dentition with dry mucosa. Neck: Supple without JVD. Back: Stooped posture without CVA tenderness. Lungs: Bronchovesicular breath sounds diffusely with no focalizing rales or rho nchi. Breast: Exam deferred. Heart: Borderline tachycardic rate at the time of exam with no murmurs or gallops appreciated. Normal rhythm. Abdomen: Obese contour, soft over most abdomen but tender to palpation over right upper and mid abdomen with positive Maynard sign. No rigidity or rebound. No appreciable hepatosplenomegaly. Genitalia/rectal: Exam deferred. Extremity: Without clubbing, cyanosis or pitting edema. Fair capillary refill. Skin: Pale, warm and dry. Neuro: Cranial nerves II through XII grossly intact with no focal motor deficits and no tremor. Psych: Flattened affect with pressured speech and depressed mood though very talkative and wandering in conversation not delusional and no abnormal thought processes manifested. She did not mention suicidal ideation at the time of my exam. Remote memory appears to be grossly intact with recent memory less intact. Her history changes with repetition. Results Imaging Imaging Studies: Exam: CT Abdomen And Pelvis With Contrast Exam date and time: 07/01/2022 2:01 AM Age: 46 years old Clinical indication: Nausea and vomiting; Abdominal pain; Localized; Left; Prior surgery; Surgery date: 6+ months; Surgery type: HX of spleen rupture TECHNIQUE: Imaging protocol: Computed tomography of the abdomen and pelvis with contrast. Radiation optimization: All CT scans at this facility use at least one of these dose optimization techniques: automated exposure control; mA and/or kV adjustment per patient size (includes targeted exams where dose is matched to clinical indication); or iterative reconstruction. Contrast material: OMNIPAQUE 350; Contrast volume: 100 ml; Contrast route: INTRAVENOUS (IV);? COMPARISON: CT ABDOMEN PELVIS W 03/01/2020 12:24 AM FINDINGS: Liver: Possible fatty infiltration of the liver, difficult to confidently diagnose by CT imaging after administration of intravenous contrast. Gallbladder and bile ducts: Moderate gallbladder distension. No calcified gallstones or biliary dilatation. Pancreas: Normal appearing pancreas. Spleen: Mild morphologic deformity of the spleen in keeping with the provided history of prior splenic injury. Surgical material adjacent to the spleen. Correlation with surgical history recommended. Adrenal glands: Normal appearing adrenal glands. Kidneys and ureters: Normal appearing kidneys. No hydronephrosis. No obstructing ureteral stones. Stomach and bowel: No oral contrast. Stomach partially decompressed. No small bowel dilatation to suggest obstruction. Cecum located in the right upper quadrant suggesting free mobility on an independent mesentery. Normal-appearing colon. No evidence of diverticulitis or colitis. Appendix: Normal appendix, unusually located in the anterior mid abdomen. Intraperitoneal space: No gross ascites or free air. Vasculature: Normal caliber abdominal aorta. Lymph nodes: No pathologically enlarged mesenteric, retroperitoneal, or pelvic sidewall lymph nodes. Urinary bladder: Urinary bladder partially collapsed but grossly unremarkable, as seen. Reproductive: Anteverted uterus, normal in size. 1.8 cm x 1.9 cm x 2.1 cm relatively hyperdense masslike finding in the anterior uterine wall, image 49 of series 6, possibly a leiomyoma but not well characterized by the current exam. Ovaries partially obscured but normal in size. 1.1 cm right ovarian follicle with an adjacent 1.5 cm peripherally enhancing right ovarian corpus luteum. Bones/joints: No acute fracture seen among the bones of the abdomen or pelvis. Spinal degenerative change with small Schmorl's nodes at several levels. Soft tissues: Tiny fat-containing ventral hernia at the umbilicus, doubtful clinical significance. IMPRESSION: 1. 1.1 cm right ovarian follicle with an adjacent 1.5 cm peripherally enhancing right ovarian corpus luteum. No gross free pelvic fluid. 2. Moderate gallbladder distention. No calcified gallstones or biliary dilatation. 3. No acute bowel pathology demonstrated. Labs Result diagrams: 07/01/22 16:55 07/01/22 10:45 Labs: Laboratory Results - last 24 hr 07/01/22 07/01/22 07/01/22 00:59 00:59 02:25 WBC 15.51 H RBC 5.09 Hgb 9.1 L Hct 31.3 L MCV 62 L MCH 17.9 L MCHC 29.1 L RDW 20.1 H Plt Count 780 H* MPV 9.9 Immature Gran % 0.5 Neutrophils % 76.3 Lymphocytes % 14.4 Monocytes % 8.0 Eosinophils % 0.1 Basophils % 0.7 Nucleated RBC % 0.0 Absolute Neutrophils 11.83 H Absolute Lymphocytes 2.23 Absolute Monocytes 1.24 H Absolute Eosinophils 0.02 Absolute Basophils 0.11 RBC Morphology See Below Anisocytosis 2+ Microcytosis 2+ PT INR APTT Sodium 133 L Potassium 2.8 L* Chloride 94 L Carbon Dioxide 25.3 Anion Gap 13.7 H BUN 26 H Creatinine 1.5 H Estimated GFR/1.73 m2 37.55 Glucose 129 H Calcium 9.2 Magnesium 1.8 Total Bilirubin 0.6 AST 2126 H ALT 1972 H Alkaline Phosphatase 105 Total Protein 9.4 H Albumin 4.1 Serum HCG, Qual Salicylates < 2.8 Acetaminophen < 2 Ethyl Alcohol < 3.0 COVID-19 Source 07/01/22 07/01/22 07/01/22 02:25 03:24 03:33 WBC RBC Hgb Hct MCV MCH MCHC RDW Plt Count MPV Immature Gran % Neutrophils % Lymphocytes % Monocytes % Eosinophils % Basophils % Nucleated RBC % Absolute Neutrophils Absolute Lymphocytes Absolute Monocytes Absolute Eosinophils Absolute Basophils RBC Morphology Anisocytosis Microcytosis PT 14.3 H INR 1.5 H APTT 26.3 Sodium Potassium Chloride Carbon Dioxide Anion Gap BUN Creatinine Estimated GFR/1.73 m2 Glucose Calcium Magnesium Total Bilirubin AST ALT Alkaline Phosphatase Total Protein Albumin Serum HCG, Qual Negative Salicylates Acetaminophen Ethyl Alcohol COVID-19 Source Nasal/Nares Last Vital Signs Temp 36.6 C 07/01/22 00:20 Pulse 87 07/01/22 04:12 Resp 26 H 07/01/22 04:12 BP 155/77 H 07/01/22 04:12 Pulse Ox 98 07/01/22 04:12
[2022-07-01] MEDS: Heparin 5,000 UNITS/ML VIAL 5000 UNITS SC (06:49)
--- NOTE | 2022-07-01 08:33 | PDOC.CMIN ---
- If Service Date Differs Date of service: 07/01/22 Time of Service: 08:33 Care Management Initial Assess REASON FOR HOSPITALIZATION:: Acute hypokalemia, Acute hepatitis, Nausea & vomiting, abdominal pain PAST MEDICAL HISTORY/PAST SURGICAL HISTORY:: All Active Problems (Updated 07/01/22 @ 06:31 by Julien Martínez). Acute hepatitis (Acute). Depression (Chronic). Nausea & vomiting (Acute). Acute hypokalemia (Acute). Abdominal pain (Acute). Medical History . Hepatitis C. Heroin abuse. Lung tumor. Spleen disorder. Surgical History . Tubal ligation status PREVIOUS FUNCTIONAL STATUS/SOCIAL/FAMILY SUPPORTS:: Sherin lives in [place] with her Aleta Shah. She is unemployed and does not have a running vehicle. Sherin moved to the area 3 years ago and is originally from [place]. Sherin has 3 children who live in [place] and [place], her oldest is 26 and her youngest is 10. CURRENT FUNCTIONAL STATUS:: Sherin was anxious and sitting up in bed when CM met with her. She is accompanied by her Aleta Ray. Sherin expresses desire to seek inpatient treatment at a dual diagnosis treatment center. ADVANCE DIRECTIVES:: None on file. CM will offer forms. Has patient been provided with info about the portal/API?: Yes Did the patient sign up for the portal?: No CODE STATUS:: Full Code INSURANCE COVERAGE / FINANCIAL ISSUES:: Medicare CURRENT HOME/COMMUNITY SERVICES/EQUIPMENT:: None PRIMARY CARE PHYSICIAN:: None POTENTIAL DISCHARGE NEEDS:: Follow up appointments, PCP, treatment resources/referrals, assessments for further needs. PATIENT/FAMILY EDUCATION NEEDS:: Review discharge instructions, limitations, medications and plan to follow up with community providers. ask me three. TRANSPORTATION:: Dependent on Disposition: RCT to home vs. transport to inpatient tx facility. PLAN:: Sherin requires close monitoring and treatment for Acute Hepatitis, abdominal pain, N/V and substance withdrawal. Over the last month, pt reports that she relapsed on Fetanyl and cocaine after 3 years of sobriety. CM contacted [facility] for evaluation. The plan is for [facility] to reassess pt this afternoon. Sherin shares that she would like inpatient treatment at a dual diagnosis facility. CM will continue to follow.
[2022-07-01 08:48] LABS: Bilirubin Small (Negative); Blood Negative (Negative); Clarity Sl Cloudy (Clear); Glucose Negative (Negative); Ketones Negative (Negative); Leukocyte Esterase Negative (Negative); Nitrite Negative (Negative)
[2022-07-01 08:54] LABS: Source Nasal/Nares
[2022-07-01 08:55] LABS: *AMPHETAMINES SCREEN URINE Negative (Negative); *BARBITURATES SCREEN URINE Negative (Negative); *BENZODIAZEPINES SCREEN URINE Negative (Negative); Cannabinoids THC Positive (Negative); Cocaine Screen,Urine Positive (Negative); METHADONE URINE SCREEN Positive (Negative); OPIATES URINE SCREEN Negative (Negative)
[2022-07-01] MEDS: chlordiazePOXIDE 25 MG CAP 100 MG PO (08:55)
[2022-07-01] MEDS: cloNIDine 0.1 MG TAB PO ×2 (08:55→16:58)
[2022-07-01 09:01] LABS: Tricyclic Antidepressants Positive (Negative)
--- NOTE | 2022-07-01 09:07 | W.PULMCC ---
General Date of Service Date of service: 07/01/22 Time of Service: 08:15 Reason for Admission to ICU: Acute Liver Failure Polysubstance Use Disorder Assessment and Plan Assessment and plan (1) Acute liver failure due to drug: Status: Acute (2) Nausea & vomiting: Status: Acute (3) Hypokalemia: Status: Acute (4) DALIA (acute kidney injury): Status: Acute (5) Thrombocytosis: Status: Acute (6) Anemia: Status: Chronic (7) Polysubstance use disorder: Status: Acute (8) Hepatitis C: Assessment and plan: This is a 46 yo female with history of hepatitis C who has relapsed from drug use and has been using IV fentanyl and smoking cocaine who is admitted for acute liver failure. This is most likely due to drug use but will also rule out active/acute viral hepatitis with a hepatitis panel and an HIV screen. Treatment of this is largely supportive. As her CT abdomen shows no acute pathology she should be promoted to have PO intake as can be tolerated and I would discontinue normal saline infusion (particularly given her DALIA as the saline is likely to worsen this). She is written for benzo's and clonidine to aid with withdrawal symptoms. Recommendations Pulmonary: No acute concerns Cardiac: I do not see an EKG completed - will obtain this given TCA on U tox and use on clonidine Renal: DALIA - likely pre-renal given vomiting - has received some IVF - promote PO fluids - if no UOP this morning recommend bladder scan to ensure there is no retention I&O: Intake & Output 06/28/22 06/29/22 06/30/22 07/01/22 23:59 23:59 23:59 23:59 Intake Total 1480 / 1480 Balance 1480 / 1480 Weight 81.3 kg Daily Fluid Goal:: even to positive 1 L GI Nutrition: Regular diet Acute Liver Failure - hepatitis panel and HIV screen - supportive care - monitor liver function - ammonia level Date of Last Bowel Movement: 06/29/22 Infectious Disease: h/o Hep C - acute hepatitis panel - HIV screen Hematologic: Anemia - will monitor Neurologic: Polysubstance use - on Librium - prn Ativan - clonidine Suicidal Ideation - CPSO Endocrine: No acute concerns Lines: PIV Prophylaxis: heparin Code Status: Resuscitation Status Full Code Subjective Critical and life-threatening events over the past 24 hours: This is a 46 yo female with a history of substance use disorder who recently relapsed into opiates one month ago who had developed nausea and vomiting. She admits to using IV fentanyl and smoking cocaine and then developed nausea and vomiting. On presentation to the ED she was found to be in acute liver failure with a negative Tyelenol level. A subsequent U tox was positive for methadone, tricyclics, cocaine and THC. She also has an DALIA and hypokalemia. She did have a CT of her abdomen and pelvis which was significant for fatty liver but no cirrhosis and some gallbladder distension but no gallstones or biliary dilation with no bowel pathology. Her vital signs are stable. On my assessment she appear stable. She has complaints of worry surrounding withdrawal and suicidal ideation. She is worried about her liver failure. He has anxiety about mortality and stated her mother just at 57. She is somewhat tangential in her speech but does answer appropriately. No trouble breathing. States she is withdrawaling. Endorses abdominal pain. Exam Narrative Exam Narrative: Gen: NAD, normal respiratory effort, well-nourished HENT: PERRL, nasal turbinates normal without erythema or inflammation, moist oral mucosa, Mallampati 2, No LAD or JVD Chest: No respiratory distress, normal appearance of chest, clear to auscultation bilaterally, no crackles or wheezes, normal inspiratory effort Heart: regular rate and rhythym, no murmurs, rubs or gallops Abdomen: Non-distended, soft, tender Extremities: No clubbing, edema, cyanosis, rashes Neuro: AAOx3 , non focal Psych: cooperative, appropriate mental affect Most Recent VS/Results Last Vital Signs Temp 36.4 C L 07/01/22 04:10 Pulse 87 07/01/22 04:12 Resp 26 H 07/01/22 04:12 BP 155/77 H 07/01/22 04:12 Pulse Ox 98 07/01/22 04:12 Laboratory Results - last 24 hr 07/01/22 07/01/22 07/01/22 00:59 00:59 02:25 WBC 15.51 H RBC 5.09 Hgb 9.1 L Hct 31.3 L MCV 62 L MCH 17.9 L MCHC 29.1 L RDW 20.1 H Plt Count 780 H* MPV 9.9 Immature Gran % 0.5 Neutrophils % 76.3 Lymphocytes % 14.4 Monocytes % 8.0 Eosinophils % 0.1 Basophils % 0.7 Nucleated RBC % 0.0 Absolute Neutrophils 11.83 H Absolute Lymphocytes 2.23 Absolute Monocytes 1.24 H Absolute Eosinophils 0.02 Absolute Basophils 0.11 RBC Morphology See Below Anisocytosis 2+ Microcytosis 2+ PT INR APTT Sodium 133 L Potassium 2.8 L* Chloride 94 L Carbon Dioxide 25.3 Anion Gap 13.7 H BUN 26 H Creatinine 1.5 H Estimated GFR/1.73 m2 37.55 Glucose 129 H Calcium 9.2 Magnesium 1.8 Total Bilirubin 0.6 AST 2126 H ALT 1972 H Alkaline Phosphatase 105 Total Protein 9.4 H Albumin 4.1 Serum HCG, Qual Urine Color Urine Clarity Urine pH Ur Specific [place] Urine Protein Urine Ketones Urine Blood Urine Nitrite Urine Bilirubin Urine Urobilinogen Ur Leukocyte Esterase Urine Glucose Salicylates < 2.8 Urine Opiates Screen Urine Methadone Screen Acetaminophen < 2 Ur Barbiturates Screen Ur Tricyclics Screen Ur Amphetamines Screen U Benzodiazepines Scrn Urine Cocaine Screen Ur THC Screen Ethyl Alcohol < 3.0 COVID-19 Source SARS-CoV-2 (PCR) 07/01/22 07/01/22 07/01/22 02:25 03:24 03:24 WBC RBC Hgb Hct MCV MCH MCHC RDW Plt Count MPV Immature Gran % Neutrophils % Lymphocytes % Monocytes % Eosinophils % Basophils % Nucleated RBC % Absolute Neutrophils Absolute Lymphocytes Absolute Monocytes Absolute Eosinophils Absolute Basophils RBC Morphology Anisocytosis Microcytosis PT INR APTT Sodium Potassium Chloride Carbon Dioxide Anion Gap BUN Creatinine Estimated GFR/1.73 m2 Glucose Calcium Magnesium Total Bilirubin AST ALT Alkaline Phosphatase Total Protein Albumin Serum HCG, Qual Negative Urine Color Urine Clarity Urine pH Ur Specific [place] Urine Protein Urine Ketones Urine Blood Urine Nitrite Urine Bilirubin Urine Urobilinogen Ur Leukocyte Esterase Urine Glucose Salicylates Urine Opiates Screen Urine Methadone Screen Acetaminophen Ur Barbiturates Screen Ur Tricyclics Screen Ur Amphetamines Screen U Benzodiazepines Scrn Urine Cocaine Screen Ur THC Screen Ethyl Alcohol COVID-19 Source Cancelled Nasal/Nares SARS-CoV-2 (PCR) Cancelled 07/01/22 07/01/22 07/01/22 03:33 08:15 08:15 WBC RBC Hgb Hct MCV MCH MCHC RDW Plt Count MPV Immature Gran % Neutrophils % Lymphocytes % Monocytes % Eosinophils % Basophils % Nucleated RBC % Absolute Neutrophils Absolute Lymphocytes Absolute Monocytes Absolute Eosinophils Absolute Basophils RBC Morphology Anisocytosis Microcytosis PT 14.3 H INR 1.5 H APTT 26.3 Sodium Potassium Chloride Carbon Dioxide Anion Gap BUN Creatinine Estimated GFR/1.73 m2 Glucose Calcium Magnesium Total Bilirubin AST ALT Alkaline Phosphatase Total Protein Albumin Serum HCG, Qual Urine Color Yellow Urine Clarity Sl Cloudy Urine pH 7.0 Ur Specific [place] 1.010 Urine Protein 30 H Urine Ketones Negative Urine Blood Negative Urine Nitrite Negative Urine Bilirubin Small H Urine Urobilinogen 1.0 H Ur Leukocyte Esterase Negative Urine Glucose Negative Salicylates Urine Opiates Screen Negative Urine Methadone Screen Positive A Acetaminophen Ur Barbiturates Screen Negative Ur Tricyclics Screen Positive A Ur Amphetamines Screen Negative U Benzodiazepines Scrn Negative Urine Cocaine Screen Positive A Ur THC Screen Positive A Ethyl Alcohol COVID-19 Source SARS-CoV-2 (PCR) Review of Systems All systems reviewed & are unremarkable except as noted in HPI and below Time spent with patient Time spent in Critical Care: 40 Time spent in Critical care included: Chart review, Documenting critically ill care, Time at immediate bedside and Discussing critically ill care with other medical staff Multi-Disciplinary Checklist Lines/Tubes CENTRAL LINE: no ARTERIAL LINE: no SLOAN: no ENDOTRACHEAL TUBE: no ICU Maintenance GLUCOSE 140-180mg/dL: yes NUTRITION AT GOAL: yes PRESSURE ULCER: no RESTRAINTS: no ANTIBIOTICS(if yes, consider Stewardship): No Social Issues FAMILY UPDATED: no, Reason/Intervention: patient able/CPSO PT/OT: no, Reason/Intervention: just admitted GOALS/DISPOSITION/GLASS CLEANING MACHINE TENDER: yes CODE STATUS: Full Prophylaxis DVT PROPHYLAXIS: yes GI PROPHYLAXIS: no
[2022-07-01 09:27] LABS: COVID-19 PCR Negative (Negative)
[2022-07-01 09:30] LABS: Bacteria Few HPF (Negative); C & S Indicated? No/Sq. Contamination; Casts Negative LPF (Negative); Crystals Negative HPF (Negative); Epithelial Cells Many HPF (Negative); Mucus Negative (Negative); RBC 0-2 HPF (0-2); WBC 0-2 HPF (0-5)
--- NOTE | 2022-07-01 09:30 | RT.EKG_ITS ---
APPROVED REPORT Exam: Resting ECG Reason for Exam: polysubstance use Patient Location: I HR:94 bpm ECG Measurements Heart Rate 94 AXIS NJ 140 P 46 QRSd 84 QRS 19 QT 397 T 19 QTc 497 Conclusion Sinus rhythm...normal P axis, V-rate 50- 99 Low voltage, precordial leads...precordial leads <1.0mV Borderline prolonged QT interval...QTc >485mS
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
--- NOTE | 2022-07-01 10:15 | NUR.NOTE ---
Nursing Note: At approximately 1005, mental health doing an evaluation via tablet in room.
--- NOTE | 2022-07-01 10:31 | PDOC.CMSAFE ---
- If Service Date Differs Date of service: 07/01/22 Time of Service: 10:31 Care Management Safety Plan Status: Interim - Guarianship if Applicable Guardianship: Other - Reason for Wait Reason for Wait: Assessment/Screening, Medical Clearance Chief Complaint: Sherin is a 46 year old female who reports that she relapsed about 1 month ago and has been using IV fentanyl and smoking cocaine. Sherin requires monitoring and treatment for acute liver failure and substance withdrawal. Sherin was screened by [facility] Crisis team this morning, however during the interview she became 'increasingly sleepy' and the screening could not be completed. [facility] recommends a second interview this afternoon when Sherin is less drowsy. At this time, [facility] reports that patient should remain at [facility] on a voluntary basis. CM will respond to ICU to assess patient after patient has been medically cleared and assessed by screener. If screener deems patient meets criteria for psychiatric stabilization, CM will facilitate interdepartmental huddle with [facility] screener for safety planning considerations and meet with patient to review [facility] policy and safety plan, establish individual wishes for treatment and maintain patient rights. In the interim; please note safety plan below to guide patient care while awaiting further assessment in the ICU. SAFETY PLAN: 1. Will remain on suicide precautions and in paper clothes. 2. Will remain in room under direct supervision of one-on-one staff at all times provided by EMMANUEL, CLAY HOISTER film or videotape editor. 3. May have paper cups, plates, finger foods as well as a cardboard spoon with which to eat meals. 4. Follow [facility] Management of the Admitted Behavioral Health Patient policy. 5. Personal care: Comfort bath system only at this time. 6. Bathroom privileges: with escort in ED. Available in room without limitation on Med/Surg/ICU. 6. No personal belongings at this time; per RN discretion. 7. No visitors at this time. 8. Phone contact limited to legal contact at this time. 9. Activities: Music tablet per RN discretion. Med/Surg: Television and remote available at RN discretion. 10. Due to VOLUNTARY status, if patient wishes to leave [facility], staff will contact [facility] Crisis Screener ([phone]) and On-Call Broom Maker ([phone]) as soon as possible. In the event of elopement, notify [facility] Police ([phone]). If deemed appropriate for inpatient psychiatric care, safety plan will be established with patient, and care team, to adhere to patient goals, identify restrictions based on behavioral status, address nutrition, and determine allowed personal belongings, tools for hygiene and personal care. As well plan will
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
[2022-07-01] MEDS: Naloxone 0.4 MG/ML VIAL IM (10:54)
[2022-07-01 11:35] LABS: Albumin 3.7 g/dL (3.4-5.0); Alkaline Phosphatase 97 U/L (46-116); Anion Gap 11.2 mmol/L (3-11); BUN 21 mg/dL (7-18); Bilirubin, Total 0.5 mg/dL (0.2-1.0); CO2 26.8 mmol/L (21.0-32.0); CREATININE 1.4 mg/dL (0.55-1.02); Calcium 8.8 mg/dL (8.5-10.1); Chloride 98 mmol/L (98-107); Estimated GFR 40.66 (mL/min/1.73m2); Glucose 117 mg/dL (74-106); Sodium 136 mmol/L (136-145); Total Protein 8.7 g/dL (6.4-8.2)
[2022-07-01 11:39] LABS: AST 1413 U/L (15-37)
[2022-07-01 11:40] LABS: Potassium 2.9 mmol/L (3.5-5.1)
[2022-07-01 11:45] LABS: *AMPHETAMINES SCREEN URINE Negative (Negative); *BARBITURATES SCREEN URINE Negative (Negative); *BENZODIAZEPINES SCREEN URINE Negative (Negative); Cannabinoids THC Positive (Negative); Cocaine Screen,Urine Positive (Negative); METHADONE URINE SCREEN Positive (Negative); OPIATES URINE SCREEN Negative (Negative)
[2022-07-01 11:48] LABS: Tricyclic Antidepressants Positive (Negative)
[2022-07-01 11:49] LABS: ALT 1462 U/L (14-59)
--- NOTE | 2022-07-01 14:46 | NUR.NOTE ---
Patient asking for lunch. Delivered lunch. Patient asked for a cup of ice for her gingerale and a cup of coke with ice. All delivered. Nursing Note:
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
[2022-07-01] MEDS: chlordiazePOXIDE 25 MG CAP 50 MG PO (16:58)
[2022-07-01 17:11] LABS: Abs Immature Grans 0.03 10^3/uL (0.0-0.06); Absolute Basophil Count 0.09 10^3/uL (0.0-0.2); Absolute Eosinophil Count 0.14 10^3/uL (0.0-0.7); Absolute Lymphocyte Count 3.19 10^3/uL (1.2-3.4); Absolute Monocyte Count 1.25 10^3/uL (0.1-0.8); Basophils % 0.9; Eosinophils % 1.4; HCT 28.3 % (36.0-46.0); HGB 8.2 g/dL (11.2-15.7); Immature Grans % 0.3; Lymphocytes % 32.6; MCH 17.8 pg (27.0-33.0); MCV 61 fL (80-95); MPV 9.9 fL (8.0-11.0); Monocytes % 12.8; Platelet Count 618 10^3/uL (130-400); RBC 4.61 10^6/uL (3.93-5.22); RDW 20.2 % (11.7-14.6); RDW-SD 42.3 fL
[2022-07-01 17:26] LABS: Ammonia 13 umol/L (11-32)
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
[2022-07-02 10:05] LABS: Hepatitis A Antibody IgM Negative (Negative); Hepatitis B Core Antibody Positive (Negative); Hepatitis B surface Ag Negative (Negative); Hepatitis C Ab w Rflx HCV PCR Reactive (Negative)
[2022-07-03 10:53] LABS: HIV-1/2 Ag & Ab Screen Negative (Negative)
[2022-07-03 12:42] LABS: HCV RNA Qualitative Undetected (Undetected)
[2022-07-04 16:06] LABS: HBc IgM Ab, S Negative (Negative)
== END 2022-07-01 21:00 | disposition left against medical advice (07) | DRG 442 ==
LOC: ER 03:53 → ICU 04:42
PROVIDERS: Family Medicine; Student in an Organized Health Care Education/Training Program; Admitting Provider Family Medicine; Emergency Provider Emergency Medicine; Visit Provider Family Medicine
DX: K71.10 Toxic liver disease with hepatic necrosis, without coma (principal); N17.9 Acute kidney failure, unspecified; R45.851 Suicidal ideations; F11.10 Opioid abuse, uncomplicated; E86.0 Dehydration; E83.119 Hemochromatosis, unspecified; D75.839 Thrombocytosis, unspecified; F19.10 Other psychoactive substance abuse, uncomplicated; E87.6 Hypokalemia; F32.A Depression, unspecified; Z86.19 Personal history of other infectious and parasitic diseases; R11.2 Nausea with vomiting, unspecified; D64.9 Anemia, unspecified; F17.210 Nicotine dependence, cigarettes, uncomplicated
CPT/HCPCS: 36410; 36415; 80053; 80307; 86704; 86709; 86803; 87340; 87389; 87522; 87635; 96361; 96374; 96375; 99285; 74177; 80320; 80329; 81003; 81015; 82140; 83735; 84703; 85025; 85610; 85730; 86705; 93005; 93010; 99223; J1644; J2310; J2405; J3480; J3490

== ENCOUNTER 2022-07-01 21:18 | Observation (INO) | payer MEDICARE, SELFPAY ==
[2022-07-01 21:32] VITALS: BP 115/72; PULSE 93; RESP 16; TEMP 37; O2SAT 98
--- NOTE | 2022-07-01 22:19 | ED.GENADUL_ITS ---
Discharge Plan Disposition Patient Disposition: STILL A PATIENT Condition: Stable Discharge Details Clinical Impression: Encounter for medical assessment Primary Care Provider: None,None ED Provider: Delon Machado Home Meds and New Rx's Prescriptions: No Action No Known Home Meds Discharge Instructions Additional Instructions: Please follow-up closely with your primary care provider for reassessment of your liver numbers. Please follow-up closely with your mental health advocates. If you notice any worsening of your symptoms, or any new symptoms such as vomiti ng, diarrhea, fever, chills, shortness of breath, chest pain, numbness, weakness, or fainting , please return immediately to the emergency department for reevaluation. Please follow up with your primary care provider as soon as possible for reassessment and reevaluation. As always, it was a pleasure participating in your medical care today. Medical Decision Making This is a 46-year-old female with a past medical history of hepatitis C, and drug relapse, using IV fentanyl, who was admitted for acute liver failure likely secondary to hepatitis and drug use, she was admitted for supportive treatment, CT scan was negative, p.o. medication was being tolerated, and unfortunately throughout the day she had multiple episodes of threatening to leave, confrontational behavior with the [facility] staff, and eventually left AMA this evening. She went outside, but her significant other would not answer her phone calls or come to pick her up. She then turned around and walked back into the emergency department from the entrance and demanded readmission. She denies any other complaints at this time. Exam demonstrates an unremarkable physical exam although the patient herself is somewhat agitated at baseline. I did contact the hospitalist and the [facility] staff, at this time they see no indication for admission. They state that the patient had stabilized, her transaminases were downtrending, and she no longer required medical admission. Admission has been refused at this point. I did talk to the patient and discussed this with her. She states that she understands her need for follow-up, and that she was medically treated. She understands that she needs to follow-up with her PCP for recheck for her labs and with her mental health advocates. Initially the patient denied any homicidal or suicidal ideations whatsoever when she first came in. However we then called her significant other, and explained the situation to him. I am uncertain as to what their conversation entailed, but once they were done with their conversation she recovers and stated that if I am going to be discharged, then if you let me go home I am just going to take a bunch of heroin and . She denies any obvious thoughts of self-harm aside for that. The patient did not do much more than leave the front entrance, and she was in the company of security staff the whole time. She took no new illicit substances. No indication for medication or medical reassessment as she just had labs a few hours ago. She is otherwise notably stable. As the hospitalist service is currently refusing need for medical admission, there is no indication to admit her clinically based on medical screening exam here. Because of the patient's statement so, I do feel that out of an abundance of precaution and following protocol she will need to be evaluated by mental health advocates. 11:41 PM Patient has been seen and assessed by mental health. They recommend observation and reassessment in the morning. Currently the patient is not a risk to herself here in the emergency department. She states that the only thing that would cause her to want to end her life is that she left the emergency department and was discharged. No indication for sitter at this time based on current clinical assessment. Patient will be monitored here in the ED with reassessment in the morning. Patient is here voluntarily. HPI General Date/Time Provider Initiated Documentation: 07/01/22 21:28 . [facility] Narrative: This is a 46-year-old female with a past medical history of hepatitis C, and drug relapse, using IV fentanyl, who was admitted for acute liver failure likely secondary to hepatitis and drug use, she was admitted for supportive treatment, CT scan was negative, p.o. medication was being tolerated, and unfortunately throughout the day she had multiple episodes of threatening to leave, confrontational behavior with the [facility] staff, and eventually left AMA this evening. She went outside, but her significant other would not answer her phone calls or come to pick her up. She then turned around and walked back into the emergency department from the entrance and demanded readmission. She denies any other complaints at this time. Related Data Home Medications Medication Instructions Recorded Confirmed Unknown [No Known Home Meds] 07/01/22 07/01/22 Allergies Allergy/AdvReac Type Severity Reaction Status Date / Time aspirin Allergy Anaphylaxsi Unverified 07/01/22 00:27 s acetaminophen [From Tylenol] AdvReac Anaphylaxsi Unverified 07/01/22 00:27 s General Stated Complaint: GenMedical LEOBARDO: 3 Review of Systems All systems reviewed & are unremarkable except as noted in HPI and below PFSH All Active Problems Encounter for medical assessment (Acute) Polysubstance use disorder (Acute) Anemia (Chronic) Thrombocytosis (Acute) DALIA (acute kidney injury) (Acute) Hypokalemia (Acute) Acute liver failure due to drug (Acute) Acute hepatitis (Acute) Depression (Chronic) Nausea & vomiting (Acute) Acute hypokalemia (Acute) Abdominal pain (Acute) Medical History Hepatitis C Heroin abuse Lung tumor Spleen disorder Surgical History Tubal ligation status Social History Smoking/Tobacco Use Status: Current every day Tobacco Type: cigarettes Smoking risk assessment performed?: Yes Alcohol Intake: never Drug use: Binges Substance use type: crack/cocaine and heroin Details: pt purchasing methoadone and suboxone on the street to try to detox herself. Pt states she used heroin two weeks ago Do you feel safe at home: Yes Do you feel safe in your relationship?: Yes Additional Social history: living at [facility] with boyfriend Exam Narrative Exam Narrative: 1.Const: Well-nourished, Well-developed, appearing stated age 2.Eyes: PERRL, no conjunctival injection, and symmetrical lids. 3.ENT: Atraumatic external nose and ears. Moist MM. Neck: Symmetric, trachea midline, No thyromegaly. 4.CVS: +S1/S2, No murmurs or gallops. Peripheral pulses 2+ and equal in all extremities. Brisk capillary refill in all extremities. 5.RESP: Unlabored respiratory effort. Clear to auscultation bilaterally. No wheezes rales or rhonchi 6.GI: Soft, Nontender/Nondistended, No hepatosplenomegaly. No guarding or rebound. 7.MSK: Normocephalic/Atraumatic, Extremities w/o deformity or ttp No cyanosis or clubbing, Normal movement of all extremities 8.Skin: Warm, Dry. No rashes or lesions. 9.Neuro: zone maintenance technician II-XII grossly intact. Sensation grossly intact, no focal neurologic deficits. 10.Psych: (AAO) x3. Somewhat agitated. Course Vital Signs Vital signs: Vital Signs Temperature 37.0 C 07/01/22 21:32 Pulse 93 H 07/01/22 21:32 Respiratory Rate 16 07/01/22 21:32 Blood Pressure 115/72 07/01/22 21:32 Pulse Oximetry 98 07/01/22 21:32 Temperature 37.0 C 07/01/22 21:32 Temperature Source Temporal Artery Scan 07/01/22 21:32 Pulse 93 H 07/01/22 21:32 Respiratory Rate 16 07/01/22 21:32 Respiratory Effort 07/01/22 21:32 Blood Pressure 115/72 07/01/22 21:32 Blood Pressure Position Sitting 07/01/22 21:32 Pulse Oximetry 98 07/01/22 21:32 Oxygen Delivery Method Room Air 07/01/22 21:32 Oxygen Flow Rate 0 07/01/22 21:32 Pain Level 10 07/01/22 21:32
--- NOTE | 2022-07-02 00:13 | PDOC.MHCN ---
Date of service: 07/01/22 Time of Service: 22:42 PHQ-9 Over the last 2 weeks, how often have you been bothered by any of the following problems? 1. Little interest or pleasure in doing things: nearly every day 2. Feeling down, depressed, or hopeless: nearly every day 3. Trouble falling or staying asleep, or sleeping too much: nearly every day 4. Feeling tired or having little energy: nearly every day 5. Poor appetite or overeating: several days 6. Feeling bad about yourself - or that you are a failure or have let yourself and your family down: nearly every day (Client states: my entire family has told me that I am a failure.) 7. Trouble concentrating on things, such as reading the newspaper or watching television: more than half the days 8. Moving or speaking so slowly that other people could have noticed? - Or the opposite - being so fidgety or restless that you have been moving around a lot more than usual: several days 9. Thoughts that you would be better off or of hurting yourself in some way: nearly every day Total score: 22 If you checked off any problems, how difficult have these problems made it for you to do your work, take care of things at home, or get along with other people?: extremely difficult Source: Developed by Drs. Geraldo Duff, Perla Graf, Lior Escalera and colleagues, with an educational grisel from [employer]. Suicide Severity Rate CSSRS Have you wished you were or wished you could go to sleep and not wake up?: Yes Have you actually had any thoughts of killing yourself?: Yes CSSRS2 Have you been thinking about how you might do this?: Yes Have you had these thoughts and had some intention of acting on them?: Yes Have you started to work out or worked out the details of how to kill yourself? Do you intend to carry out this plan?: Yes CSSRS3 Have you ever done anything, started to do anything or prepared to do anything to end your life?: Yes CSSRS4 Was this within the past three months?: No Screening Score Total Score: 6 Screening: Positive Mental Health Emergency Note Release [facility] release signed:: Yes Reason for Visit Client presented to [facility] ED after leaving ICU AMA. When client returned to the ED she states that she wanted to be re-admitted, however when the attending physician told her that there was no reason medially to admit her she stated that is her birthday and I will not be alive for that if I leave this hospital. In the last 2 weeks has the pt presented for ES prior to today?: Yes, presented at [facility] ED (Client presented for vomiting symptoms and the inability to keep food down. Client also endorsed SI. ) Client Information Client is: New Well Housed: No,status: Not homeless, Unstable housing Non Suicidal Self Injury Current: Yes, Intentional overdose on recreational drugs and pulling clumps of hair out of head. History: yes, Overdosing on recreational drugs and superficial cuts to both forearms. Safety Risk/Harm to Self or Others Current Ideation to Harm Self or Others: Yes to self. (Client states that she is endorsing persistant SI. Rating intent 10/10 and multiple different plans. ) Intent: yes, has intent. Plan: yes,has a plan. History of suicide attempt: No history of suicide attempt reported Risk: Does risk to harm exist?: yes. Risk: High Risk Duty to warn indicated: No Asssessment/Mental Status Appearance: Disheveled and Poor hygiene Attitude: Cooperative Behavior: Unremarkable Speech: Normal and Pressured Affect: Flat and Cogruent with mood Mood: Sad, Stressed and Depressed Thought process: Unremarkable Hallucinations: No evidence Delusions: No evidence Attention: Unremarkable Perception: Not impaired Orientation: Fully orientated Memory: Intact Insight: Poor Judgement: Poor Neurovegetative Symptoms Sleep: Decrease (Client reports that she cannot sleep without sleep aides. ) Appetitie: Decrease (Client reports that she does not have an appetite. ) Interests: Decrease Energy: Decrease Libido: Not applicable Substance Use: Drug Issues: Dependence (Client reports that she smokes crack and shoots heroin daily. ) Do you use nicotine?: Yes Have you used substances in the last 7 days?: yes, Client would not disclose amount, however states that she smoked crack and shot heroin last night prior to her arrival at [facility] ED. Additional Issues: Assaultive/Threatening Behavior: No Medical Concerns: No Client engaged in active self harm w/weapon: No Threatening to run away: No Child reported abuse/neglect: No Voluntarily presenting for services: Yes Domestic violence is a concern: No Extreme Psychosis or extreme behavior is present: No Impression Client presents in street clothes and states to this travel writer at the beginning of the assessment: I have nobody if i leave here right now I am just going to go lie in the middle of the road and pray that somebody hits me or I will go jump off from the nearest bridge into shallow water with rocks in an attempt to by suicide. Client goes on to state: all I think about doing is dying I have nothing, sometimes I go up to 3 months without showering. Plan/Disposition Recommended Disposition: Hospitalization (Client meets criteria for inpatient hospitalization. ) facilities contacted. Plan: Cleint will remain at [facility] ED on voluntary status pending admission to an inpatient facility. If client attempts to leave A [facility] ES should be notified so an EE or MH warrant can be written. Client will be re-assessed daily by [facility] until placement is secured or clients acuity level decreases and client can be safety planned home. Person reported agreement to plan: Yes Facilities contacted if Applicable [facility] Not accepted, No bed available [facility] Not accepted, No bed available [facility] Not accepted, No bed available (Only accepting in house referrals. ), [facility] Not accepted, No bed available (Send referral) Reports/communication Outcome discussed with: ED/Personnel (Discussed case with ED attending physicain Dr. Machado is who in agreeance with plan. )
[2022-07-02] MEDS: hydrOXYzine PAMOATE 25 MG CAP 50 MG PO (02:24)
[2022-07-02] MEDS: cloNIDine 0.1 MG PATCH TD (03:01)
--- NOTE | 2022-07-02 09:47 | W.EDPROG ---
Date of service: 07/02/22 Time of Service: 08:00 Medical Decision Making 0800 -- please see previous provider's note for initial presentation, exam and plan. Case endorsed with plan to be reassessed by mental health this morning. Patient is reportedly voluntary and medically cleared. If patient attempts to elope, will contact mental health. 1100 -- patient evaluated by Rossana with mental health and plan is to seek inpatient psychiatric hospitalization for suicidal statements. Patient was medically cleared yesterday and is voluntary at this time. If patient decides to leave, plan is for EE. 1700 --Case discussed with mental health and due to insurance issues, [facility] will not accept. [facility] may be a possibility but likely no transfer today. 1900 --Case discussed with hospitalist who accepts patient for admission while awaiting placement. Patient has remained hemodynamically stable. Will order clonidine 0.1mg PO q4h prn withdrawal symptoms. Medical Records Medical records reviewed: Yes I reviewed the patient's medical records. Sign Out Sign Out Data: Sign Out Comment: Left AMA from upstairs. Medically admitted previously for hepatitis, but now medically clear per hospitalist. Patient refused to go home and states that if she does get discharged she will kill herself. Mental health recommends observation and reassessment in the morning. Patient is nonsuicidal here in the ED, the instigating factor is if she gets discharged. Last updated by Delon Machado DO at 07/01/22 23:43 Sign Out Comment: No real issues overnight. Patient complaining of opiate withdrawal and ordered for clonidine patch as well as oral hydroxyzine. Reevaluation by mental health this morning. Last updated by Geraldo Schmitt MD at 07/02/22 07:31 Discharge Plan Disposition Patient Disposition: [facility] Condition: Stable Discharge Details Clinical Impression: Major depression, Suicidal ideation, Hepatitis C Admit Date/Time: 07/02/22 19:09 Admit Provider: Julien Martínez Attending Provider: Julien Martínez Primary Care Provider: None,None ED Provider: Rika Osborn Discharge Data Discharge Date/Time-TO BE ENTERED AT DEPARTURE: 07/02/22 19:56
--- NOTE | 2022-07-02 11:06 | PDOC.CMSAFED ---
- If Service Date Differs Date of service: 07/02/22 Time of Service: 11:06 Care Management Safety Plan Status: Voluntary - Reason for Wait Reason for Wait: Inpatient Admission Chief Complaint: Sherin is a 46 year old female who initially presented in the ED on 07/01/2022 for depression, nausea & vomiting, hypokalemia and abdominal pain. Sherin was [place] [facility] and on the evening of 07/01/22 she left AMA. A short while later, she returned to the ED, hoping to get readmitted but when told by the ED provider that there was no medical reason to readmit her, Sherin began making suicidal statements. She was evaluated by [facility] and found to meet criteria for a voluntary psychiatric hospitalization. Sherin is originally from the [place], [place] area. She has been psychiatrically hospitalized in the past but only in [place]. Per [facility], Sherin has struggled with intermittent suicidal ideation for several months and she has a history of overdoses and of engaging in self-harming behaviors (cutting). Referrals are faxed to [facility], [facility], and [facility] for review. Sherin will remain at [facility] and will be reassessed daily by [facility] until a psychiatric bed can be secured for her. CM will continue to follow. VOLUNTARY FOR INPATIENT PSYCHIATRIC STABILIZATION. Patient is appropriate in all interactions since arriving at [facility]; Pt has demonstrated appropriate coping and communication skills, has articulated his or her needs and concerns and is fully engaged during staff interactions. A decentralized huddle is held this morning with Dr. Osborn, ED provider, Lesly, nursing supervisor rocket propellant plant, LYSSA Pelayo, Rossana, [facility], and JUDE Lozano. Safety plan has been established with patient, and care team, to adhere to patient goals, identify restrictions based on behavioral status, address nutrition, and determine allowed personal belongings, tools for hygiene and personal care. Determine level of activity including ambulation, level of supervision, visitors, and determine privileges based on behaviors and level of engagement by pt. SAFETY PLAN: 1. Will remain on suicide precautions. In Paper Clothes 2. Will remain in room under direct supervision of one-on-one staff at all times provided by CPSO, EMMANUEL, RN ACUTE CARE neurology director. 3. May have paper cups, plates, finger foods as well as a cardboard spoon to eat meals. 4. Follow [facility] Management of the Admitted Behavioral Health Patient policy. 5. Shower permitted with escort at RN discretion. 6. No personal belongings. 7. Visitors-none at this time. 8. Activities: soft cart items, music tablet, television if available, and other activities at RN discretion. 9. Bathroom privileges with escort in the ED, available in room without limitation on M/S. 10. No phone use at this time. 11. Due to VOLUNTARY status, if patient wishes to leave [facility], staff will contact [facility] Crisis Screener ([phone]) and On-Call Regional Merchandising Manager ([phone]) as soon as possible. In the event of elopement, notify [facility] Police ([phone]). Patient is currently voluntarily at [facility] and seeking inpatient admission when a bed becomes available. [facility] Frontline Solution Engineer will continue seeking placement. Please contact the Chief Sales Officer Regional Merchandising Manager ([phone]) and [facility] Solution Engineer ([phone]) for any needed changes in the Safety Plan. Safety plan has been provided to interdepartmental care team.
--- NOTE | 2022-07-02 11:06 | NUR.NOTE ---
Nursing Note: Pablo Zhao, on [employer], asked to speak to her by phone. Was told that she cannot have any visitors and has restricted phone use at this time. He went on to talk about when she was in ICU and that he gave her medication. I reiterated again about the visitors and phone use and tried to explain but he was extremely unhappy and hung up.
--- NOTE | 2022-07-02 11:33 | NUR.NOTE ---
Nursing Note:PT's boyfriend called very upset demanding to know why PT is no longer allowed visitors or phone called. Plasma Processing Technician explained it is part of her care plan. He stated that he was accused of something that he did not do and would not accept what the casualty underwriter was saying. He ended the phone call abruptly.
--- NOTE | 2022-07-02 11:41 | MHPN_ITS ---
Date of service: 07/02/22 Time of Service: 11:41 Mental Health Emergency Note Release [facility] release signed:: No Reason for Visit Client was in the ICU at [facility] due to stomach issues, however left AMA to smoke a ciggarette and returned to the ED to re-admit herself. Client stated to attending physician Dr. Machado when he informed her that there was no reason to medically admit her she said that if she left the hospital she would by suicide. In the last 2 weeks has the pt presented for ES prior to today?: Yes, presented at (see above) [facility] ED Client Information Client is: New Non Suicidal Self Injury Current: No History: No Safety Risk/Harm to Self or Others Current Ideation to Harm Self or Others: Yes to self. (would jump off a building or into an on coming train. ) Intent: yes, has intent. Plan: yes,has a plan. History of suicide attempt: yes,history of suicide attempt reported. Details of previous suicide attempt: via overdose. Risk: Does risk to harm exist?: No Asssessment/Mental Status Appearance: Disheveled Attitude: Cooperative Behavior: Agitated Speech: Normal Affect: Cogruent with mood Mood: Depressed and Irritable Thought process: Unremarkable Hallucinations: No Delusions: No Attention: Unremarkable Perception: Not impaired Orientation: Fully orientated Memory: Intact Insight: Good Judgement: Fair Neurovegetative Symptoms Sleep: Decrease Appetitie: No change Interests: Decrease Energy: Decrease Libido: Not applicable Substance Use: Drug Issues: Dependence Do you use nicotine?: Yes Have you used substances in the last 7 days?: yes, Heroin, daily and unknown amount Additional Issues: Assaultive/Threatening Behavior: No Medical Concerns: No Client engaged in active self harm w/weapon: No Threatening to run away: No Child reported abuse/neglect: No Voluntarily presenting for services: Yes Domestic violence is a concern: No Extreme Psychosis or extreme behavior is present: No Impression Client is endorsing SI with intent of 6.5/10 and plan (jump off a building or into an oncoming train) if she were to leave the ED. She has a history of attempts and hospitalizations. She is in this clinician's professional observation a person in need of treatment. She can be manipulative as she but is easily redirected when addressed. Client is voluntarily seeking treatment at this time. Plan/Disposition Recommended Disposition: Hospitalization facilities contacted. Plan: Referrals will be sent. Client will remain at [facility] and assessed daily. Client was informed that [facility]' concerns are great about her level f risk to self and if she were to leave it is [facility]' opinion at this time an EE will be written. Person reported agreement to plan: Yes Facilities contacted if Applicable [facility] Not accepted, Other (Needs referral.) [facility] Not accepted, Other (Needs referral. ) [facility] Not accepted, No bed available, [facility] Not accepted, Other (Needs referral. ) Reports/communication Outcome discussed with: ED/Personnel Final Disposition/Discharge Transportation Checklist completed and faxed: No
[2022-07-02] MEDS: LORazepam 1 MG TAB PO (15:07)
[2022-07-02 19:19] VITALS: BP 108/62
[2022-07-02] MEDS: cloNIDine 0.1 MG TAB PO (19:22)
--- NOTE | 2022-07-02 21:05 | HPE_ITS ---
Date of service: 07/02/22 Time of Service: 21:05 Assessment and Plan Assessment and plan (1) Suicidal ideation: Start date: 07/02/22 Status: Acute Assessment and plan: This is a 46-year-old lady who returns to the hospital with suicidal ideation. She is medically stable though she appears to have recurrent hepatitis which most likely is hepatitis C with positive antibody and viral load testing pending. She has vague abdominal complaints which appear to be stable. She is not acutely ill and is medically cleared for placement for inpatient psychiatric care for suicidal ideation once bed available. [facility] has been consulted and patient does have a continuous sitter. She is a full code. (2) Depression: Status: Chronic Assessment and plan: Not on treatment and to be evaluated as an inpatient. Patient is very chaotic and polysubstance use makes treatment very difficult. (3) Polysubstance use disorder: Status: Chronic Assessment and plan: Monitor for withdrawal symptoms or side effects. (4) Acute hepatitis: Status: Acute Assessment and plan: Positive hepatitis C antibody with viral load testing pending to confirm reinfection. Patient needs follow-up with hepatology and needs treatment of substance abuse to avoid reinfection in the future if treated again. History of Present Illness History of Present Illness Chief Complaint: Suicidal ideation and reported opioid withdrawal Narrative: This is a 46-year-old lady who just left AMA and reported back to the ED, see narrative below. She was admitted for observation and possible placement voluntarily for psychiatric care of suicidal ideation though this is questionable with the patient's manipulative behavior and seeming to only want to be medicated with benzodiazepines throughout her short observation thus far. She was asleep at the time I approached her and had little to add to her history and was withdrawn. Mental health will be seeing the patient and she did not receive benzodiazepines throughout the evening and sales agent protective service though she had requested times. She did have clonidine orally ordered if she was having symptoms of opiate withdrawal which is questionable the patient being a poor historian. She did not threaten to leave AMA at this time. She is a full code and will be placed for inpatient psychiatric care if cooperative. ED Summary: This is a 46-year-old female with a past medical history of hepatitis C, and drug relapse, using IV fentanyl, who was admitted for acute liver failure likely secondary to hepatitis and drug use, she was admitted for supportive treatment, CT scan was negative, p.o. medication was being tolerated, and unfortunately throughout the day she had multiple episodes of threatening to leave, confrontational behavior with the [facility] staff, and eventually left AMA this evening.? She went outside, but her significant other would not answer her phone calls or come to pick her up.? She then turned around and walked back into the emergency department from the entrance and demanded readmission.? She denies any other complaints at this time. Exam demonstrates an unremarkable physical exam although the patient herself is somewhat agitated at baseline.? I did contact the hospitalist and the [facility] staff, at this time they see no indication for admission.? They state that the patient had stabilized, her transaminases were downtrending, and she no longer required medical admission.? Admission has been refused at this point.? I did talk to the patient and discussed this with her.? She states that she understands her need for follow-up, and that she was medically treated.? She understands that she needs to follow-up with her PCP for recheck for her labs and with her mental health advocates.? Initially the patient denied any homicidal or suicidal ideations whatsoever when she first came in.? However we then called her significant other, and explained the situation to him.? I am uncertain as to what their conversation entailed, but once they were done with their conversation she recovers and stated that if I am going to be discharged, then if you let me go home I am just going to take a bunch of heroin and .? She denies any obvious thoughts of self-harm aside for that.? The patient did not do much more than leave the front entrance, and she was in the company of security staff the whole time.? She took no new illicit substances.? No indication for medication or medical reassessment as she just had labs a few hours ago.? She is otherwise notably stable.? As the hospitalist service is currently refusing need for medical admission, there is no indication to admit her clinically based on medical screening exam here.? Because of the patient's statement so, I do feel that out of an abundance of precaution and following protocol she will need to be evaluated by mental health advocates.? 11:41 PM Patient has been seen and assessed by mental health.? They recommend observation and reassessment in the morning.? Currently the patient is not a risk to herself here in the emergency department.? She states that the only thing that would cause her to want to end her life is that she left the emergency department and was discharged.? No indication for sitter at this time based on current clinical assessment.? Patient will be monitored here in the ED with reassessment in the morning.? Patient is here voluntarily. Review of Systems Narrative: 13 point review of systems otherwise unrevealing or stable. Patient continues to complain of abdominal discomfort though sleeping upon approach. PFSH All Active Problems (Updated 07/03/22 @ 15:12 by Julien Martínez) Suicidal ideation (Acute) Encounter for medical assessment (Acute) Polysubstance use disorder (Chronic) Anemia (Chronic) Thrombocytosis (Acute) DALIA (acute kidney injury) (Acute) Hypokalemia (Acute) Acute liver failure due to drug (Acute) Acute hepatitis (Acute) Depression (Chronic) Nausea & vomiting (Acute) Acute hypokalemia (Acute) Abdominal pain (Acute) Medical History Hepatitis C Heroin abuse Lung tumor Spleen disorder Surgical History Tubal ligation status Social History Smoking/Tobacco Use Status: Current every day Tobacco Type: cigarettes Smoking risk assessment performed?: Yes Alcohol Intake: never Drug use: Binges Substance use type: crack/cocaine and heroin Details: pt purchasing methoadone and suboxone on the street to try to detox herself. Pt states she used heroin two weeks ago Do you feel safe at home: Yes Do you feel safe in your relationship?: Yes Additional Social history: living at [facility] with boyfriend Meds Allergies and Home Medications Allergies Allergy/AdvReac Type Severity Reaction Status Date / Time aspirin Allergy Anaphylaxsi Unverified 07/01/22 00:27 s acetaminophen [From Tylenol] AdvReac Anaphylaxsi Unverified 07/01/22 00:27 s Home Medications Medication Instructions Recorded Confirmed Type Unknown [No Known Home Meds] 07/01/22 07/01/22 History Exam Narrative Exam Narrative: General: Patient appears older than stated age, sleeping and in no acute distress, disheveled, alert and oriented at least to person and place. HEENT: Normocephalic, eyes with pupils equal and reactive to light symmetrically, extraocular movement intact and sclera anicteric.? Poor dentition with moist mucosa. Neck: Supple without JVD. Back: Stooped posture without CVA tenderness. Lungs: Bronchovesicular breath sounds diffusely with no focalizing rales or rhonchi. Fair aeration. Breast: Exam deferred. Heart: Regular Rate and Rhythm no murmurs or gallops appreciated.? Normal rhythm. Abdomen: Obese contour, soft over most abdomen but tender to palpation over right upper and mid abdomen.? No rigidity or rebound.? No appreciable hepatosplenomegaly. Genitalia/rectal: Exam deferred. Extremity: Without clubbing, cyanosis or pitting edema.? Fair capillary refill. Skin: Pale, warm and dry. Neuro: Cranial nerves II through XII grossly intact with no focal motor deficits and no tremor. Psych: Flattened affect with pressured speech and depressed mood, withdrawn and drifting off to at time of exam. Results Labs Result diagrams: 07/03/22 05:35 07/03/22 05:35 Last Vital Signs Temp 37.0 C 07/01/22 21:32 Pulse 93 H 07/01/22 21:32 Resp 16 07/01/22 21:32 BP 108/62 07/02/22 19:19 Pulse Ox 98 07/01/22 21:32
[2022-07-02 22:06] VITALS: BP 92/63; PULSE 69; RESP 12; TEMP 36.7; O2SAT 99
[2022-07-03] MEDS: cloNIDine 0.1 MG TAB PO (03:58)
--- NOTE | 2022-07-03 09:59 | CMPROGNOTE_ITS ---
- If Service Date Differs Date of service: 07/03/22 Time of Service: 09:59 Care Management Progress Note This morning Sherin informed nursing staff that she wished to leave. CM spoke to her and encouraged her to stay.Sherin explained that she made a stupid mistake and firmly denied SI or HI at this time. She stated that she just wants to go to [place] to be with her family. Sherin also shared that she is done with her boyfriend and that she just wants to get away from him. JUDE contacted [facility] crisis screener (Carole) and informed her that Sherin was leaving [facility].
--- NOTE | 2022-07-03 09:59 | NUR.NOTE ---
Since approximately 0810 have been discussing with care management and mental health that pt wants to leave. Pt asked to use the phone to call for a ride. Pt did speak with mental health services and per patient did agree to stay for one hour to await for their arrival. After the hour pt decided to leave. Clothes and personal items provided and AMA form signed. Care management and provider notified of pt leaving.Nursing Note:
--- NOTE | 2022-07-03 10:00 | W.PM.DS.N ---
Date of service: 07/03/22 Time of Service: 10:00 DS: Diagnosis Discharge Diagnosis (1) Suicidal ideation: Status: Acute (2) Depression: Status: Chronic (3) Polysubstance use disorder: Status: Acute (4) Acute hepatitis: Status: Acute Discharge Plan Disposition Patient Disposition: AGAINST MEDICAL ADVICE Condition: Stable Discharge Details Reason For Visit: Major Depression,Suicidal Ideation,Opiod Abuse Admit Date/Time: 07/02/22 19:09 Admit Provider: Julien Martínez Attending Provider: Julien Martínez Primary Care Provider: None,None Hospital Course Hospital Course: This is a 46 year old female with past medical history of substance abuse, acute hepatitis who recently left against medical against while awaiting and inpatient psychiatric bed for suicidal ideation. She was hospitalized originally for acute liver failure secondary to drug use and hepatitis. She was suspected of using while hospitalized after a visit from her boyfriend and then noted to have an altered mental status that resolved with narcan. She ended up eventually leaving [facility] only to return immediately to the ED when her boyfriend didn't pick her up. There was no medical reason to admit her so they were going to discharge her when she then stated if she was discharged she would kill herself. She was again re-evaluated by mental health and agreeable to an inpatient psychiatric management. Due to her previous behaviors, multiple threats to leave [facility]a, substance abuse suspected while hospitalized it was determined she would be boarded in the ED until a bed available as the plan would be for EE if she opted to leave. she ultimately was admitted and decided to leave [facility]. I was notified that she left the building. Dr Coreas notified. Home Meds and New Rx's Prescriptions: No Action No Known Home Meds Discharge Instructions Additional Instructions: Please follow-up closely with your primary care provider for reassessment of your liver numbers. Please follow-up closely with your mental health advocates. If you notice any worsening of your symptoms, or any new symptoms such as vomiting, diarrhea, fever, chills, shortness of breath, chest pain, numbness, weakness, or fainting , please return immediately to the emergency department for reevaluation. Please follow up with your primary care provider as soon as possible for reassessment and reevaluation. As always, it was a pleasure participating in your medical care today. Activity:: Activity as Tolerated Equipment/Supplies:: No Equipment Needed Diet:: As Tolerated Discharge Orders Discharge Orders: Discharge Order (Routine); Ordered 07/03/22 Ordered By: Tonya Vogt Discharge Data Discharge Date/Time-TO BE ENTERED AT DEPARTURE: 07/03/22 09:55 Discharge Comment: BAUDILIO DS: Summary Time Spent with Patient providing and/or coordinating discharge services: Less than 30 minutes Status at Discharge Functional status at discharge: independent ambulation Overall status at discharge: patient is back to baseline Mental Status: mental status grossly normal Speech and Movement: speech and movement normal Mood: congruent mood Affect: normal affect Exam Psych Mental Status: mental status grossly normal Speech and Movement: speech and movement normal Mood: congruent mood Affect: normal affect DS: Data Vitals/I&O Vitals and I&O: Vital Signs Temperature 36.7 C 07/02/22 22:06 Temperature Source Tympanic 07/02/22 22:06 Pulse 69 07/02/22 22:06 Pulse Rhythm Regular 07/03/22 09:05 Respiratory Rate 12 07/02/22 22:06 Respiratory Effort Non-Labored 07/03/22 09:05 Respiratory Depth Normal 07/03/22 09:05 Respiratory Pattern Normal 07/03/22 09:05 Blood Pressure 92/63 L 07/02/22 22:06 Blood Pressure Position Sitting 07/01/22 21:32 Pulse Oximetry 99 07/02/22 22:06 Oxygen Delivery Method Room Air 07/02/22 22:06 Oxygen Flow Rate 0 07/02/22 22:06 Pain Level 10 07/01/22 21:32 Comment 07/02/22 22:06 Intake & Output 07/02/22 07/02/22 07/03/22 11:59 23:59 11:59 Other: Comment pT went to bathroom independently. Voiding Methods Toilet Data Completed and Pending Labs on day of discharge: Labs from last 24 hours 07/03/22 07/03/22 05:35 05:35 WBC Cancelled RBC Cancelled Hgb Cancelled Hct Cancelled MCV Cancelled MCH Cancelled MCHC Cancelled RDW Cancelled Plt Count Cancelled MPV Cancelled Immature Gran % Cancelled Neutrophils % Cancelled Band Neutrophils % Cancelled Lymphocytes % Cancelled Atypical Lymphs % Cancelled Monocytes % Cancelled Eosinophils % Cancelled Basophils % Cancelled Metamyelocytes % Cancelled Myelocytes % Cancelled Promyelocytes % Cancelled Other Cells % Cancelled Nucleated RBC % Cancelled Absolute Neutrophils Cancelled Absolute Lymphocytes Cancelled Absolute Monocytes Cancelled Absolute Eosinophils Cancelled Absolute Basophils Cancelled RBC Morphology Cancelled Polychromasia Cancelled Hypochromasia Cancelled Poikilocytosis Cancelled Basophilic Stippling Cancelled Anisocytosis Cancelled Microcytosis Cancelled Macrocytosis Cancelled Spherocytes Cancelled Tear Drop Cells Cancelled Ovalocytes Cancelled Stomatocytes Cancelled [place] Bodies Cancelled [place]pe Cells/Echinocytes Cancelled Acanthocytes (Spur) Cancelled Schistocytes Cancelled Sodium Cancelled Potassium Cancelled Chloride Cancelled Carbon Dioxide Cancelled Anion Gap Cancelled BUN Cancelled Creatinine Cancelled Est GFR (CKD-EPI 2020) Cancelled Glucose Cancelled Calcium Cancelled Magnesium Cancelled Total Bilirubin Cancelled AST Cancelled ALT Cancelled Alkaline Phosphatase Cancelled Total Protein Cancelled Albumin Cancelled PFSH All Active Problems (Updated 07/03/22 @ 06:27 by Julien Martínez) Suicidal ideation (Acute) Encounter for medical assessment (Acute) Polysubstance use disorder (Acute) Anemia (Chronic) Thrombocytosis (Acute) DALIA (acute kidney injury) (Acute) Hypokalemia (Acute) Acute liver failure due to drug (Acute) Acute hepatitis (Acute) Depression (Chronic) Nausea & vomiting (Acute) Acute hypokalemia (Acute) Abdominal pain (Acute) Medical History Hepatitis C Heroin abuse Lung tumor Spleen disorder Surgical History Tubal ligation status Social History Smoking/Tobacco Use Status: Current every day Tobacco Type: cigarettes Smoking risk assessment performed?: Yes Alcohol Intake: never Drug use: Binges Substance use type: crack/cocaine and heroin Details: pt purchasing methoadone and suboxone on the street to try to detox herself. Pt states she used heroin two weeks ago Do you feel safe at home: Yes Do you feel safe in your relationship?: Yes Additional Social history: living at [facility] with boyfriend
--- NOTE | 2022-07-03 10:04 | NUR.NOTE ---
Nursing Note: Patient left AMA with all her possessions at 9:53 am 07/03/22 escorted by nursing staff. Patient was waiting for the bus to pick her up. encouraged by care management, nursing staff and mental health services to stay but patient stated i just want to go home and go to bed. Charge nurse and other services aware per facility protocol
== END 2022-07-03 09:55 | disposition left against medical advice (07) ==
LOC: ER 07-02 19:32 → MS 07-02 19:59
PROVIDERS: Admitting Provider Family Medicine; Emergency Provider Physician Assistant; Visit Provider Family Medicine
DX: F32.A Depression, unspecified (principal); R45.851 Suicidal ideations; B17.10 Acute hepatitis C without hepatic coma; F11.10 Opioid abuse, uncomplicated; D64.9 Anemia, unspecified; F19.10 Other psychoactive substance abuse, uncomplicated; N17.9 Acute kidney failure, unspecified; E87.6 Hypokalemia; D75.839 Thrombocytosis, unspecified; F17.210 Nicotine dependence, cigarettes, uncomplicated
CPT/HCPCS: 80053; 99285; 83735; 85025; 99217; 99220; G0378

== ENCOUNTER 2022-07-05 08:55 | Emergency (ER) | payer MEDICARE, SELFPAY ==
[2022-07-05 09:06] VITALS: BP 109/81; PULSE 96; TEMP 36.8; O2SAT 95
--- NOTE | 2022-07-05 09:26 | W.ED.GENAD ---
Discharge Plan Disposition Patient Disposition: HOME Condition: Improving Discharge Details Chief Complaint: PsychEval Clinical Impression: Psychiatric complaint Primary Care Provider: None,None ED Provider: Alonzo Delgadillo Home Meds and New Rx's Prescriptions: No Action No Known Home Meds Discharge Instructions Additional Instructions: Please follow-up with mental health services as scheduled. Please return to the emergency department as needed Medical Decision Making 47-year-old female history of substance abuse, brought in under mental health warrant for evaluation of prior SI during last emergency medicine visit, this time patient left AGAINST MEDICAL ADVICE; patient is currently resting comfortably no acute distress is alert oriented clinically sober, goal oriented appropriate and pleasant. Denies SI or HI. No evidence of hallucinations or delusions. Hemodynamically stable. Patient is not a risk to herself or others at this time. She has been medically cleared here in the emergency department. Have reached out to [facility] for mental health evaluation, I believe this patient be appropriate for safety plan and outpatient follow-up. 11: 06 patient resting comfortably no acute distress evaluated by [facility] and cleared from a mental health standpoint. No SI no HI patient was given a safety plan as well as referral for therapy and will be contacted by phone next week. HPI General Date/Time Provider Initiated Documentation: 07/05/22 09:01. HPI Narrative: 47-year-old male history of substance abuse, brought in under mental health warrant as she was endorsing suicidal ideations upon her last visit to the emergency department late last month and left AGAINST MEDICAL ADVICE. Patient denies Danish or homicidal ideation. Patient is goal oriented and looking forward to seeing her grandchildren in [place], just celebrated her birthday and her 3-year anniversary with her fianc?. Endorses that the statements she made related to her severe abdominal pain during her last visit. Related Data Home Medications Medication Instructions Recorded Confirmed Unknown [No Known Home Meds] 07/01/22 07/01/22 Allergies Allergy/AdvReac Type Severity Reaction Status Date / Time aspirin Allergy Anaphylaxsi Unverified 07/01/22 00:27 s acetaminophen [From Tylenol] AdvReac Anaphylaxsi Unverified 07/01/22 00:27 s General Stated Complaint: PsychEval LEOBARDO: 2 Review of Systems Narrative: Review of Systems Constitutional: negative Eyes: negative ENT: negative Cardiovascular: negative Respiratory: negative Gastrointestinal: negative : negative Musculoskeletal: negative Skin: negative Neurologic: negative Psych: negative PFSH All Active Problems (Updated 07/05/22 @ 11:09 by Alonzo Delgadillo MD) Psychiatric complaint (Acute) Suicidal ideation (Acute) Encounter for medical assessment (Acute) Polysubstance use disorder (Chronic) Anemia (Chronic) Thrombocytosis (Acute) DALIA (acute kidney injury) (Acute) Hypokalemia (Acute) Acute liver failure due to drug (Acute) Acute hepatitis (Acute) Depression (Chronic) Nausea & vomiting (Acute) Acute hypokalemia (Acute) Abdominal pain (Acute) Medical History Hepatitis C Heroin abuse Lung tumor Spleen disorder Surgical History Tubal ligation status Social History Smoking/Tobacco Use Status: Current every day Tobacco Type: cigarettes Smoking risk assessment performed?: Yes Alcohol Intake: never Drug use: Daily Substance use type: marijuana, crack/cocaine and heroin Details: pt states she last used fentanyl this morning, does not want to get high just want to stop withdrawals Do you feel safe at home: Yes Do you feel safe in your relationship?: Yes Additional Social history: living at [facility] with boyfriend Exam Narrative Exam Narrative: Physical Examination General: alert, awake, cooperative, resting comfortably, no acute distress HEENT: normocephalic, atraumatic; PERRL, EOM intact, conjunctiva normal; no nasal discharge; moist mucous membranes, oral and pharyngeal mucosa normal, tolerating secretions Neck: supple, trachea midline; full ROM Chest: normal to inspection Respiratory: normal respiratory effort, speaking in full sentences, clear to auscultation, no wheezing, rales or rhonchi Cardiac: regular rate, regular rhythm, S1S2 intact, no murmurs rubs or gallops GI: abdomen soft, non-tender, non-distended; no palpable mass or hepatosplenomegaly Skin: no lesions, rashes or trauma appreciated Neuro: AAOx3, normal speech, moving all extremities Psych: Appropriate mood and affect; interactive goal oriented, no SI no HI Course Vital Signs Vital signs: Vital Signs Temperature 36.8 C 07/05/22 09:06 Pulse 96 H 09/02/22 09:06 Blood Pressure 109/81 07/05/22 09:06 Pulse Oximetry 95 07/05/22 09:06 Temperature 36.8 C 07/05/22 09:06 Pulse 96 H 07/05/22 09:06 Blood Pressure 109/81 07/05/22 09:06 Blood Pressure Position Sitting 07/05/22 09:06 Pulse Oximetry 95 07/05/22 09:06 Oxygen Delivery Method Room Air 07/05/22 09:06 Oxygen Flow Rate 0 07/05/22 09:06 Pain Level 0 07/05/22 09:06
[2022-07-05 11:27] VITALS: BP 124/80; PULSE 70; RESP 17; TEMP 36.8; O2SAT 99
--- NOTE | 2022-07-05 12:58 | PDOC.ERCMPRO ---
- If Service Date Differs Date of service: 07/05/22 Time of Service: 12:58 Care Management Progress Note Sherin presents in the ED with police on a Warrant for Emergency Examination dated 07/03/2022. Per ED provider, Sherin is denying SI/HI and is appropriate for safety planning and outpatient follow-up. CM contacts [facility] and speaks with Delon Mcwilliams, Director, to discuss EE and patient's current presentation. Delon agrees to contact Rose Spence Binder Stripper Hand, to have Sherin assessed as soon as possible. Shortly thereafter, Sherin meets with GREGORY Rose, via telehealth for an evaluation. Together they create a safety plan and Sherin is discharged to the community. She will follow up with [facility] as outlined in the safety plan below. Pro-Active Patient Safety Plan People involved in development of Safety Plan: Rose Duff ([facility]) Support people who will be made aware of this plan (Therapist, PCP, Addiction Die Polisher): Raw Material Planner: [facility] family day care worker Name: Marta Family/Significant Others Plan was shared with: Brant? Step 1: Warning signs (thoughts, images, mood, situation, behavior) that a crisis may be developin. Shut down 2. Explode 3. Step 2: Internal coping strategies Things I can do to take my mind off my problems without contacting another person (relaxation technique, physical activity): 1. Word searches 2. Candy Crush 3. Going for a walk 4. Cooking dinner 5. Playing with my dog 6. Sudoku Step 3: People and social settings that provide distraction: 1. Name: Children Name: Niece 2. Name: Fipennie? Name: Brother Negrito 3. Name: Aunt Phone: 1. Name: Fianc? Name: Son 2. Name: Aunt Phone: 3. Name: Brother Negrito Phone: 1. Clinician Name: [facility] Clinician Pager or Emergency Contact #: [phone] Local Urgent Care Services: [facility] Urgent Care Services Address: [place] [address] Urgent Care Services The one thing that is most important to me and worth living for is: My future, my children, my grandchildren Other follow-up ? Check-in phone calls with [facility] daily through 07/10/22 between 12-5. Call [phone] and ask for emergency services. ? Referral for therapy at [facility]
--- NOTE | 2022-07-05 13:13 | PDOC.MHCN ---
Date of service: 07/05/22 Time of Service: 11:00 PHQ-9 Over the last 2 weeks, how often have you been bothered by any of the following problems? 1. Little interest or pleasure in doing things: not at all 2. Feeling down, depressed, or hopeless: several days 3. Trouble falling or staying asleep, or sleeping too much: nearly every day 4. Feeling tired or having little energy: more than half the days 5. Poor appetite or overeating: not at all 6. Feeling bad about yourself - or that you are a failure or have let yourself and your family down: not at all 7. Trouble concentrating on things, such as reading the newspaper or watching television: several days 8. Moving or speaking so slowly that other people could have noticed? - Or the opposite - being so fidgety or restless that you have been moving around a lot more than usual: not at all 9. Thoughts that you would be better off or of hurting yourself in some way: not at all Total score: 7 If you checked off any problems, how difficult have these problems made it for you to do your work, take care of things at home, or get along with other people?: not difficult at all PHQ-9 Results: Negative Source: Developed by Drs. Geraldo Duff, Perla Graf, Lior Escalera and colleagues, with an educational grisel from [employer]. Suicide Severity Rate CSSRS Have you wished you were or wished you could go to sleep and not wake up?: No Have you actually had any thoughts of killing yourself?: No CSSRS3 Have you ever done anything, started to do anything or prepared to do anything to end your life?: Yes CSSRS4 Was this within the past three months?: No Screening Score Total Score: 2 Screening: Positive Mental Health Emergency Note Release [facility] release signed:: Yes Reason for Visit Client presented to [facility] ED via [facility] after a MH warrant was executed. In the last 2 weeks has the pt presented for ES prior to today?: Yes, presented at [facility] ED (Due to stomach issues and SI seeking voluntary placement. ) Client Information Client is: Adult Outpatient Well Housed: Yes Non Suicidal Self Injury Current: No History: yes, Client states earlier week she endorsed SI, however that was due to the pain that she was feeling due to medical issues. Safety Risk/Harm to Self or Others Current Ideation to Harm Self or Others: No Risk: Does risk to harm exist?: No Risk: N/A Duty to warn indicated: No Asssessment/Mental Status Appearance: Well groomed Attitude: Cooperative Behavior: Unremarkable Speech: Normal and Pressured Affect: Normal and Cogruent with mood Mood: Happy and Anxious Thought process: Unremarkable Hallucinations: No Delusions: No Attention: Unremarkable Perception: Not impaired Orientation: Fully orientated Memory: Intact Insight: Good Judgement: Good Neurovegetative Symptoms Sleep: No change Appetitie: Increase (Client reports that she has been able to sleep more.) Interests: Increase Energy: Increase Libido: Not applicable Substance Use: Drug Issues: Dependence (Client reports that she used fetanyl this morning and reports that she smoked crack 2 days ago. Client also reports that she uses heroin on occassion. ) Do you use nicotine?: Yes Have you used substances in the last 7 days?: yes, Client reports that she used fentanyl this morning and reports that she smoked crack 2 days ago. Client also reports that she uses heroin on occasion. Additional Issues: Assaultive/Threatening Behavior: No Medical Concerns: Yes Client engaged in active self harm w/weapon: No Threatening to run away: No Child reported abuse/neglect: No Voluntarily presenting for services: No Domestic violence is a concern: No Extreme Psychosis or extreme behavior is present: No Impression After assessment is completed by this field underwriter client does not meet criteria for involuntary treatment. At the time of MH warrant being written it appears that clients presentation was due to relationship issues as well as substance use. At this this time client reports that she wants to get the help that she needs so she can be clean from substances. Resources Reosurces reviewed and given:: [facility] and [facility] (substance abuse therapy) Plan/Disposition Recommended Disposition: [facility] Services [facility] Services: Therapy (substance abuse therapy.). Plan: Client discharged on safety plan which includes: daily check-in's with [facility] ES between - through July 10. This field underwriter will also do a referral for [facility] substance abuse therapy. Client also given [facility] 24/7 phone number as well as [address] [place] text crisis line to utilize as resources if needed.? Reports/communication Outcome discussed with: ED/Personnel (Verbal passover given to ED doctor Roxanna)
== END 2022-07-05 11:20 | disposition home or self-care (01) ==
PROVIDERS: Emergency Provider Emergency Medicine
DX: F99 Mental disorder, not otherwise specified (principal); F17.210 Nicotine dependence, cigarettes, uncomplicated; Z53.29 Procedure and treatment not carried out because of patient's decision for other reasons
CPT/HCPCS: 99285

== ENCOUNTER 2024-10-17 00:34 | Emergency (ER) | payer SELFPAY ==
[2024-10-17 00:36] VITALS: BP 167/87; PULSE 102; RESP 22; TEMP 36.9; O2SAT 95
--- OUTSIDE RECORDS SUMMARY | 2024-10-17 00:42 | XMS_ITS | Encounter Summary ---
Author Organization [facility] Address [address] [place] [address] Care Team Providers Care Warp Starter Name Role Phone Unavailable Primary Care Provider Unavailabl e Encounter Details Date Type Department Care Team (Late st Contact Info) Description 07/01/2022 Lab Requisition [facility] Pathology & Laboratory Medicine - [facility] [address] [place] [address] Outr Resulting Lab, Provider Social History Tobacco Use Types Packs/Day Years Used Date Smoking Tobacco: Never Assessed Comments Unknown Sex and Gender Information Value Date Recorded Sex Assigned at Not on file Legal Sex Female 13:05 EDT Gender Identity Not on file Sexual Orientation Not on file documented as of this encounter Plan of Treatment Not on file documented as of this encounter Procedures Procedure Name Priority Date/Time Associated Diagnosis Comments HCV RNA DETECT QUANT Today 07/01/2022 1:00 EDT ACUTE HEPATITIS PROFILE Routine 07/01/2022 1:00 EDT HEPATITIS B CORE ANTIBODY, IGM (ANTI-HBC, IGM), SERUM Today 07/01/2022 1:00 EDT documented in this encounter Results * HEPATITIS B CORE ANTIBODY, IGM (ANTI-HBC, IGM), SERUM (07/01/2022 1:00 EDT) HBc IgM Ab, S Negative Negative 2022 14:59 EDT [facility] Comment: Test Performed by: [facility] [address] [place] [address] Fire Alarm Repairer: Cristhian Singh M.D. Ph.D.; CLIA# [id number] Blood VENOUS BLOOD / Unknown 07/01/2022 1:00 EDT 07/02/2022 10:00 EDT us Provider Outr Resulting Lab CHEMISTRY & BLOOD GA S ORDERABLES Final Result [facility] [address] [place] [address] * HCV RNA DETECT QUANT (07/01/2022 1:00 EDT) [facility] HCV RNA Qualitative Undetected Undetected 07/03/2022 12:36 EDT [facility] Blood VENOUS BLOOD / Unknown 07/01/2022 1:00 EDT 07/01/2022 17:00 EDT Narrative [facility] - 07/03/2022 12:36 EDT The quantification range of this assay is 15 IU/mL to 100,000,000 IU/mL. Testing was performed using the Jyoti HCV test ([employer] with the jyoti [employer] System. us Provider Outr Resulting Lab CHEMISTRY & BLOOD GA S ORDERABLES Final Result Performing Organization Address City/[facility]/ZIP Co de Phone Number [facility] [address] [place] [address] * (ABNORMAL) ACUTE HEPATITIS PROFILE (07/01/2022 1:00 EDT) [facility] Hep B Surface Ag Negative Negative 07/02/20 10:00 EDT [facility] Hep C Antibody Reactive(A) Negative 10:00 EDT [facility] Comment: Supplemental testing for HCV RNA is ordered to rule out active HCV infection. Hepatitis A Antibody, IgM Negative Negative 07/02/2022 10:00 EDT [facility] Comment:The results of this assay can be falsely lowered due to the consumption of Biotin. Hepatitis B Core Ab, Total Positive(A) Negative 07/02/2022 10:00 EDT [facility] Comment: A positive result for Hepatitis B Core Antibody (Total) indicates either a remote past infection with Hepatitis B Virus OR a Window period between disappearance of HBsAg and seroconversion to HBsAb. Sample sent to [facility] for Hepatitis B Core IgM to differentiate between acute and past HBV infection. Blood VENOUS BLOOD / Unknown 07/01/2022 1:00 EDT 07/01/2022 17:00 EDT us Provider Outr Resulting Lab CHEMISTRY & BLOOD GA S ORDERABLES Final Result [facility] [address] [place] [address] documented in this encounter Visit Diagnoses Not on filedocumented in this encounter
--- OUTSIDE RECORDS SUMMARY | 2024-10-17 00:42 | XMS_ITS | Referral Summary ---
Author Organization [facility] Address [address] [place] [address] Care Team Providers Care School Psychological Examiner Name Role Phone Unavailable Primary Care Provider Unavailabl e Social History Tobacco Use Types Packs/Day Years Used Date Smoking Tobacco: Never Assessed Comments Unknown Sex and Gender Information Value Date Recorded Sex Assigned at Not on file Legal Sex Female 13:05 EDT Gender Identity Not on file Sexual Orientation Not on file Plan of Treatment Not on file Procedures Procedure Name Priority Date/Time Associated Diagnosis Comments HCV RNA DETECT QUANT Today 07/01/2022 1:00 EDT from Last 3 Months or Most Recently Relevant to Health Maintenance Results * HCV RNA DETECT QUANT (07/01/2022 1:00 EDT) HCV RNA Qualitative Undetected Undetected 07/03/2022 12:36 EDT [facility] Blood VENOUS BLOOD / Unknown 07/01/2022 1:00 EDT 07/01/2022 17:00 EDT Narrative [facility] - 07/03/2022 12:36 EDT The quantification range of this assay is 15 IU/mL to 100,000,000 IU/mL. Testing was performed using the Jyoti HCV test ([employer] with the jyoti 6800 System. us Provider Outr Resulting Lab CHEMISTRY & BLOOD GA S ORDERABLES Final Result [facility] [address] [place] [address] from Last 3 Months or Most Recently Relevant to Health Maintenance
--- OUTSIDE RECORDS SUMMARY | 2024-10-17 00:42 | XMS_ITS | Encounter Summary ---
Author Organization [facility] Address [address] [place] [id number] Care Team Providers Care Branch Controller Name Role Phone Unavailable Primary Care Provider Unavailabl e Encounter Details Date Type Department Care Team (Late st Contact Info) Description 07/01/2022 Lab Requisition [facility] Pathology & Laboratory Medicine - [facility] [address] [place] [address] Outr Resulting Lab, Provider Social History Tobacco [...] Procedure Name Priority Date/Time Associated Diagnosis Comments HIV 1/2 ANTIGEN AND ANTIBODY, 4TH GENERATION Routine 07/01/2022 16:55 EDT documented in this encounter Results * HIV 1/2 ANTIGEN AND ANTIBODY, 4TH GENERATION (07/01/2022 16:55 EDT) HIV 1 and 2 Antibody/p24 Antigen, 4th Generation Negative Negative 07/03/2022 10:[address] [facility] Comment:If acute HIV-1 infec tion is suspected in a high risk patient, submit plasma specimen for HIV-1 RNA quantitation test. Blood VENOUS BLOOD / Unknown 07/01/2022 16:55 EDT 07/02/2022 16:[address] [facility] - 07/03/2022 10:49 EDT Fourth Generation assay performed on the Siemens Centaur XPT. us Provider Outr Resulting Lab IMMUNOLOGY AND SEROL OGY ORDERABLES Final Result [facility] [address] [place] [address] documented in this encounter Visit Diagnoses Not on filedocumented in this encounter
--- OUTSIDE RECORDS SUMMARY | 2024-10-17 00:42 | XMS_ITS | Clinical Summary ---
Author Organization [facility] Address [address] [place] [address] Care Team Providers Care Objective C Developer Name Role Phone Unavailable Primary Care Provider Unavailabl e Social History Tobacco Use Types Packs/Day Years Used Date Smoking Tobacco: Never Assessed Comments Unknown Sex and Gender Information Value Date Recorded Sex Assigned at Not on file Legal Sex Female 13:05 EDT Gender Identity Not on file Sexual Orientation Not on file Plan of Treatment Health Maintenance Due Date Last Done Comments Hepatitis B Vaccine (1 of 3 - 19+ 3-dose series) 07/04 COVID-19 Vaccine ( season) 2024 Hepatitis C Screen Completed 07/01/2022 Procedures Procedure Name Priority Date/Time Associated Diagnosis Comments HCV RNA DETECT QUANT Today 07/01/2022 1:00 EDT from Last 3 Months or Most Recently Relevant to Health Maintenance Results * HCV RNA DETECT QUANT (07/01/2022 1:00 EDT) HCV RNA Qualitative Undetected Undetected 07/03/2022 12:36 EDT [facility] Blood VENOUS BLOOD / Unknown 07/01/2022 1:00 EDT 07/01/2022 17:00 EDT Narrative [facility] - 07/03/2022 12:36 EDT The quantification range of this assay is 15 IU/mL to 100,000,000 IU/mL. Testing was performed using the Jyoti HCV test ([employer] with the jyoti [employer] System. us Provider Outr Resulting Lab CHEMISTRY & BLOOD GA S ORDERABLES Final Result [facility] [address] [place] [address] from Last 3 Months or Most Recently Relevant to Health Maintenance
[2024-10-17 02:17] LABS: Abs Immature Grans 0.02 10^3/uL (0.0-0.06); Absolute Basophil Count 0.05 10^3/uL (0.0-0.2); Absolute Eosinophil Count 0.03 10^3/uL (0.0-0.7); Absolute Lymphocyte Count 1.92 10^3/uL (1.2-3.4); Absolute Monocyte Count 0.74 10^3/uL (0.1-0.8); Absolute Neutrophil Count 8.01 10^3/uL (1.2-6.7); Basophils % 0.5 %; Eosinophils % 0.3 %; HCT 40.3 % (36.0-46.0); HGB 12.5 g/dL (11.2-15.7); Immature Grans % 0.2 %; Lymphocytes % 17.8 %; MCH 25.4 pg (27.0-33.0); MCV 82 fL (80-95); MPV 10.5 fL (8.0-11.0); Monocytes % 6.9 %; Neutrophils % 74.3 %; Platelet Count 330 10^3/uL (130-400); RBC 4.92 10^6/uL (3.93-5.22); RDW 16.7 % (11.7-14.6); RDW-SD 50.1 fL; WBC 10.77 10^3/uL (4.4-10.8)
--- NOTE | 2024-10-17 02:22 | ED.GENADUL_ITS ---
Discharge Plan Discharge Details Chief Complaint: DrugWithdr/MAT Clinical Impression: Opiate withdrawal, Depression Primary Care Provider: None,None ED Provider: Gilda Villarreal Home Meds and New Rx's Prescriptions: No Action No Known Home Meds HPI General Mode of arrival: ambulatory . Date/Time Provider Initiated Documentation: 10/17/24 00:59 . Limitations to Documentation: no limitations . Information obtained by: patient . HPI Narrative: 49yo F with hx bipolar, PTSD, polysubstance use, presenting with depression and substance use requesting detox and psychiatric treatment. Uses fentanyl, weed, and crack. Wants to get off these. Feels like she may be starting to withdraw. Also has depression and is worried that she may want to harm herself if her situation continues. No active SI currently. Does have a hx of SA via overdose and cutting. No HI/AH/VH. Otherwise in her usual state of health with no fevers, chills, rash, nausea, vomiting, abdominal pain, dysuria, hematuria, chest pain, shortness of breath, or other concerns. Related Data Home Medications ?Medication ?Instructions ?Recorded ?Confirmed Unknown [No Known Home Meds] 07/01/22 10/17/24 Allergies Allergy/AdvReac Type Severity Reaction Status Date / Time grapefruit Allergy Severe Hives Verified 10/17/24 00:40 aspirin Allergy Anaphylaxsi Unverified 10/17/24 00:40 s acetaminophen (From Tylenol) AdvReac Anaphylaxsi Unverified 10/17/24 00:40 s General Stated Complaint: DrugWithdr/MAT LEOBARDO: 2 Review of Systems Narrative: see HPI Exam Narrative Exam Narrative: General: Alert, well appearing, well nourished, in no acute distress. Head: Normocephalic, atraumatic Neck: Trachea midline, ?Neck supple. ENT: ?MMM.? No oropharygeal lesions or exudate. Cardiac: ?RRR, no murmurs appreciated Resp: No respiratory distress. CTAB. Abd: ?Soft, non-distended, nontender Extremities: ?No deformities.? No peripheral edema. Neurologic: GCS 15. ? Moves all extremities freely against gravity Psych: Anxious, cooperative.? Well groomed.? Mood bad, affect congruent.? Speech with normal volume, rate, rythym and tone. Linear and goal directed.? Denies SI/HI/AH/VH. ? Does not appear to be responding to internal stimuli. Course Vital Signs Vital signs: Vital Signs Temperature 36.9 C 10/17/24 00:36 Pulse 102 H 10/17/24 00:36 Respiratory Rate 22 10/17/24 00:36 Blood Pressure 167/87 H 10/17/24 00:36 Pulse Oximetry 95 10/17/24 00:36 Temperature 36.9 C 10/17/24 00:36 Pulse 102 H 10/17/24 00:36 Respiratory Rate 22 10/17/24 00:36 Respiratory Effort Normal, Non-Labored 10/17/24 00:41 Respiratory Pattern Normal 10/17/24 02:06 Blood Pressure 167/87 H 10/17/24 00:36 Blood Pressure Position Sitting 10/17/24 00:36 Pulse Oximetry 95 10/17/24 00:36 Oxygen Delivery Method Room Air 10/17/24 00:36 Oxygen Flow Rate 0 10/17/24 00:36 Pain Level 0 10/17/24 00:36 Lab/Test Results Lab/Test Results: Laboratory Tests Range/Units 10/17/24 02:00 WBC (4.4-10.8) 10^3/uL 10.77 RBC (3.93-5.22) 10^6/uL 4.92 Hgb (11.2-15.7) g/dL 12.5 Hct (36.0-46.0) % 40.3 MCV (80-95) fL 82 MCH (27.0-33.0) pg 25.4 L MCHC (32.0-36.0) % 31.0 L RDW (11.7-14.6) % 16.7 H Plt Count (130-400) 10^3/uL 330 MPV (8.0-11.0) fL 10.5 Immature Gran % % 0.2 Neutrophils % % 74.3 Lymphocytes % % 17.8 Monocytes % % 6.9 Eosinophils % % 0.3 Basophils % % 0.5 Nucleated RBC % (0.0-0.3) % 0.0 Absolute Neutrophils (1.2-6.7) 10^3/uL 8.01 H Absolute Lymphocytes (1.2-3.4) 10^3/uL 1.92 Absolute Monocytes (0.1-0.8) 10^3/uL 0.74 Absolute Eosinophils (0.0-0.7) 10^3/uL 0.03 Absolute Basophils (0.0-0.2) 10^3/uL 0.05 POC- Test(urine) Negative Medical Decision Making 49yo F with hx bipolar, PTSD, polysubstance use, presenting with depression and substance use requesting detox and psychiatric treatment. No active SI but worried she will want to harm herself if this situation continues. Hypertensive and slightly tachycardiac on arrival, anxious on exam. CBC & CMP reassuring, not , ETOH negative. [facility] evaluated patient and feel she would benefit from voluntary placement; referrals sent. Signed out to oncoming physician, patient medically cleared and pending voluntary placement. Lab Data Lab results reviewed: Yes I reviewed the patient's lab results. Labs: Laboratory Tests Range/Units 10/17/ 02:00 WBC (4.4-10.8) 10^3/uL 10.77 RBC (3.93-5.22) 10^6/uL 4.92 Hgb (11.2-15.7) g/dL 12.5 Hct (36.0-46.0) % 40.3 MCV (80-95) fL 82 MCH (27.0-33.0) pg 25.4 L MCHC (32.0-36.0) % 31.0 L RDW (11.7-14.6) % 16.7 H Plt Count (130-400) 10^3/uL 330 MPV (8.0-11.0) fL 10.5 Immature Gran % % 0.2 Neutrophils % % 74.3 Lymphocytes % % 17.8 Monocytes % % 6.9 Eosinophils % % 0.3 Basophils % % 0.5 Nucleated RBC % (0.0-0.3) % 0.0 Absolute Neutrophils (1.2-6.7) 10^3/uL 8.01 H Absolute Lymphocytes (1.2-3.4) 10^3/uL 1.92 Absolute Monocytes (0.1-0.8) 10^3/uL 0.74 Absolute Eosinophils (0.0-0.7) 10^3/uL 0.03 Absolute Basophils (0.0-0.2) 10^3/uL 0.05 Sodium (136-145) mmol/L 139 Potassium (3.5-5.1) mmol/L 3.7 Chloride (98-107) mmol/L 102 Carbon Dioxide (21.0-32.0) mmol/L 27.3 Anion Gap (3-11) mmol/L 9.7 BUN (7-18) mg/dL 14 Creatinine (0.55-1.02) mg/dL 1.0 Est GFR (CKD-EPI 2020) (mL/min/1.73m2) 69.49 Glucose (74-106) mg/dL 80 Calcium (8.5-10.1) mg/dL 8.9 Total Bilirubin (0.2-1.0) mg/dL 0.51 AST (15-37) U/L 27 ALT (14-59) U/L 15 Alkaline Phosphatase (46-116) U/L 81 Total Protein (6.4-8.2) g/dL 8.6 H Albumin (3.4-5.0) g/dL 3.7 Urine Color (Yellow) Yellow Urine Clarity (Clear) Clear Urine pH (5-8) 6.0 Ur Specific [place] (1.005-1.025) >= 1.030 H Urine Protein (Neg-Trace) mg/dL 30 H Urine Ketones (Negative) mg/dL Trace H Urine Blood (Negative) Negative Urine Nitrite (Negative) Negative Urine Bilirubin (Negative) Small H Urine Urobilinogen (Up to 0.2) mg/dL 0.2 Ur Leukocyte Esterase (Negative) Negative Urine RBC (0-2) HPF 0-2 Urine WBC (0-5) HPF 0-2 Ur Epithelial Cells (Negative) HPF Moderate Urine Crystals (Negative) HPF Negative Urine Bacteria (Negative) HPF Rare Urine Casts (Negative) LPF 3-5 Hyaline Urine Mucus (Negative) Trace Ur Culture Indicated? No Urine Glucose (Negative) mg/dL Negative Urine Opiates Screen (Negative) Negative Urine Methadone Screen (Negative) Negative Ur Barbiturates Screen (Negative) Negative Ur Tricyclics Screen (Negative) Negative Ur Amphetamines Screen (Negative) Negative U Benzodiazepines Scrn (Negative) Negative Urine Cocaine Screen (Negative) Positive A Ur THC Screen (Negative) Positive A Ethyl Alcohol (<10) mg/dL < 3.0 Quality:[place] Health Related Social Needs: Health related social needs inadequate housing(Z59.1), housing instability, housed, with risk of homelessness(Z59.811), food insecurity(Z59.41) [facility] All Active Problems (Updated 10/17/24 @ 07:25 by Gilda Villarreal MD) Depression (Chronic) Opiate withdrawal (Acute) Hepatitis C (Chronic) Suicidal ideation (Acute) Major depression (Chronic) Suicidal ideation (Acute) Polysubstance use disorder (Chronic) Anemia (Chronic) Thrombocytosis (Acute) DALIA (acute kidney injury) (Acute) Hypokalemia (Acute) Acute liver failure due to drug (Acute) Acute hepatitis (Acute) Depression (Chronic) Nausea & vomiting (Acute) Acute hypokalemia (Acute) Abdominal pain (Acute) Medical History Hepatitis C Heroin abuse Lung tumor Spleen disorder Surgical History Tubal ligation status Social History Smoking/Tobacco Use Status: Current every day Tobacco Type: cigarettes and e- cigarettes Smoking risk assessment performed?: Yes Alcohol Intake: never Drug use: Daily Substance use type: marijuana, crack/cocaine and heroin Details: pt states last fentanyl IV use 1900 tonight and smoked crack at 1700 tonight Housing: homeless Do you feel safe at home: No Do you feel safe in your relationship?: No Additional Social history: Pt states does not feel safe at home or in relationship about 50% of the time.
[2024-10-17 02:32] LABS: ALT 15 U/L (14-59); AST 27 U/L (15-37); Albumin 3.7 g/dL (3.4-5.0); Alkaline Phosphatase 81 U/L (46-116); Anion Gap 9.7 mmol/L (3-11); BUN 14 mg/dL (7-18); Bilirubin, Total 0.51 mg/dL (0.2-1.0); CO2 27.3 mmol/L (21.0-32.0); Calcium 8.9 mg/dL (8.5-10.1); Chloride 102 mmol/L (98-107); ETHANOL BLOOD < 3.0 mg/dL (<10); Estimated GFR 69.49 (mL/min/1.73m2); Glucose 80 mg/dL (74-106); Potassium 3.7 mmol/L (3.5-5.1); Sodium 139 mmol/L (136-145); Total Protein 8.6 g/dL (6.4-8.2)
--- NOTE | 2024-10-17 03:36 | PDOC.MHCN_ITS ---
Date of service: 10/17/24 Time of Service: 03:00 PHQ-9 Over the last 2 weeks, how often have you been bothered by any of the following problems? 1. Little interest or pleasure in doing things: nearly every day 2. Feeling down, depressed, or hopeless: nearly every day 3. Trouble falling or staying asleep, or sleeping too much: nearly every day 4. Feeling tired or having little energy: more than half the days 5. Poor appetite or overeating: nearly every day 6. Feeling bad about yourself - or that you are a failure or have let yourself and your family down: nearly every day 7. Trouble concentrating on things, such as reading the newspaper or watching television: nearly every day 8. Moving or speaking so slowly that other people could have noticed? - Or the opposite - being so fidgety or restless that you have been moving around a lot more than usual: nearly every day 9. Thoughts that you would be better off or of hurting yourself in some way: nearly every day Total score: 26 If you checked off any problems, how difficult have these problems made it for you to do your work, take care of things at home, or get along with other people?: extremely difficult PHQ-9 Results: Positive Source: Developed by Drs. Geraldo Duff, Perla Graf, Lior Escalera and colleagues, with an educational grisel from [employer]. Suicide Severity Rate CSSRS Have you wished you were or wished you could go to sleep and not wake up?: No Have you actually had any thoughts of killing yourself?: No CSSRS2 Have you been thinking about how you might do this?: No Have you had these thoughts and had some intention of acting on them?: No Have you started to work out or worked out the details of how to kill yourself? Do you intend to carry out this plan?: No CSSRS3 Have you ever done anything, started to do anything or prepared to do anything to end your life?: Yes CSSRS4 Was this within the past three months?: No Screening Score Total Score: 2 Screening: Positive Mental Health Emergency Note Release [facility] release signed:: No Reason for Visit In the last 2 weeks has the pt presented for ES prior to today?: No Asssessment/Mental Status Appearance: Disheveled Attitude: Cooperative Behavior: Unremarkable Speech: Normal Affect: Cogruent with mood Mood: Stressed and Irritable Thought process: Unremarkable Hallucinations: No evidence Delusions: No evidence Attention: Unremarkable Perception: Not impaired Orientation: Fully orientated Memory: Intact Insight: Fair Judgement: Fair and Poor Substance Use: Drug Issues: Other (Reported daily use of fentanyl, crack cocaine and marijuana ) Impression Client is a 49-year-old female presenting at [facility] via [facility]. She is oriented to person, place, time, and situation. No evidence of thought disorder is noted, and her speech rate and rhythm are WNL. At the time of evaluation, the client denies both suicidal and homicidal ideation. The client expresses a desire for inpatient treatment, stating, ?I need help with my mental problems and to get off the street drugs.? She reports a history of suicidal ideation, referencing a previous cutting attempt approximately one year ago and notes she did not seek inpatient care at that time. Although she currently denies active SI, she states, ?I know the way my life is going I can?t promise that anymore,? indicating a potential escalation of risk if circumstances remain unchanged. The client reports ongoing substance use, including fentanyl, crack cocaine, and marijuana, with the last use of fentanyl at 7:00 PM and crack at 5:00 PM. She identifies psychosocial stressors, including an upcoming court date on 10/18/2024, and describes interpersonal conflicts with her partner of five years, stating, ?I really don?t know what else to do.? The client is requesting voluntary inpatient treatment. Plan/Disposition Recommended Disposition: Hospitalization (referral submitted [facility], [facility], [facility] and ) facilities contacted. Plan: Ct is requesting voluntary placement Facilities contacted if Applicable [facility] (referral submitted ) Not accepted, Other [facility] Not accepted, (referral submitted ) Other [facility] Not accepted, (Referral submitted ) [facility] Not accepted, (referral submitted ) Other Reports/communication Outcome discussed with: ED/Personnel
[2024-10-17 05:17] LABS: Bilirubin Small (Negative); Blood Negative (Negative); Clarity Clear (Clear); Glucose Negative (Negative); Ketones Trace mg/dL (Negative); Leukocyte Esterase Negative (Negative); Nitrite Negative (Negative); Specific Gravity >= 1.030 (1.005-1.025); Urobilinogen 0.2 mg/dL (Up to 0.2)
[2024-10-17 05:19] LABS: *AMPHETAMINES SCREEN URINE Negative (Negative); *BARBITURATES SCREEN URINE Negative (Negative); *BENZODIAZEPINES SCREEN URINE Negative (Negative); Cannabinoids THC Positive (Negative); Cocaine Screen,Urine Positive (Negative); METHADONE URINE SCREEN Negative (Negative); OPIATES URINE SCREEN Negative (Negative)
[2024-10-17 05:20] LABS: Tricyclic Antidepressants Negative (Negative)
[2024-10-17 05:23] LABS: Bacteria Rare HPF (Negative); C & S Indicated? No; Casts 3-5 Hyaline LPF (Negative); Crystals Negative HPF (Negative); Epithelial Cells Moderate HPF (Negative); Mucus Trace (Negative); RBC 0-2 HPF (0-2); WBC 0-2 HPF (0-5)
--- NOTE | 2024-10-17 07:35 | ED.PROG_ITS ---
Date of service: 10/17/24 Time of Service: 10:41 Medical Decision Making I received signout on this 49-year-old patient with history of depression and prior suicide attempt with overdose and cutting. Patient reportedly uses marijuana fentanyl and crack. She is medically cleared seeking voluntary placement. She was complaining of withdrawal but had an elevated COWS score 12. She was not interested in buprenorphine so I treated her with as needed clonidine. 1:55 PM No active behavioral issues. Patient signed out to the oncoming evening provider. Quality:[facility] Health Related Social Needs: Health related social needs inadequate housing(Z59.1), housing instability, housed, with risk of homelessness(Z59.811), food insecurity(Z59.41) Discharge Plan Discharge Details Chief Complaint: DrugWithdr/MAT Clinical Impression: Opiate withdrawal, Depression Primary Care Provider: None,None ED Provider: Negrito Moreau Home Meds and New Rx's Prescriptions: No Action No Known Home Meds
[2024-10-17] MEDS: cloNIDine 0.1 MG TAB PO ×3 (08:12→20:50)
--- NOTE | 2024-10-17 08:39 | NUR.NOTE ---
pt asking for meds for withdrawing. gave her clonidine. pt unhappy, said she needed more drugs. if she did not get them she was going to leave like she did the last time. notified. pt is now watching tv in bed. Nursing Note:
--- NOTE | 2024-10-17 08:51 | CMSP_ITS ---
Date of service: 10/17/24 Time of Service: 08:51 Care Management Safety Plan Status Status: Voluntary Reason for Wait Reason for Wait: Inpatient Admission (awaiting placement at an Inpatient rehab) Safety Plan Safety Plan: VOLUNTARY FOR INPATIENT PSYCHIATRIC STABILIZATION.? Patient is appropriate in all interactions since arriving at [facility]; Pt has demonstrated appropriate coping and communication skills and has articulated needs, concerns and is fully engaged during staff interactions. Safety plan has been established with patient, and care team, to adhere to patient goals, identify restrictions based on behavioral status, address nutrition, and determine allowed personal belongings, tools for hygiene and personal care. Determine level of activity including ambulation, level of supervision, visitors, and determine privileges based on behaviors and level of engagement by pt. Awaiting inpatient treatment. Per [facility] referrals are sent to [facility], [facility], [facility] and [facility]. SAFETY PLAN: 1. Will remain on suicide precautions, in paper clothes 2. Will remain in Zone B under direct supervision of one-on-one staff at all times provided by [employer]; EMMANUEL, WOOD CREW SUPERVISOR anchorer. 3. May have paper cups, plates, finger foods as well as a cardboard spoon with which to eat meals. 4. Follow [facility] Management of the Admitted Behavioral Health Patient policy. 5. Shower available in Zone B without restriction. 6. Personal belongings-soft items permitted at RN discretion. 7. Visitors- none at this time. 8. Activities: soft cart items approved per RN discretion. 9.? Bathroom available in Zone B without restriction. 10. Phone: incoming/outgoing calls limited to [facility] cordless phone at RN discretion. Due to VOLUNTARY status, if patient wishes to leave [facility], staff will contact [facility] Crisis Screener ([phone]) and Print Traffic Manager ([phone]) as soon as possible. In the event of elopement, notify [place] [employer] ([phone]). Patient is currently voluntarily at [facility] and seeking inpatient admission when a bed becomes available. [facility] Frontline Lumber Stacker Driver will continue seeking placement. Please contact the Print Traffic Manager ([phone]) and [facility] Lumber Stacker Driver ([phone]) for any needed changes in the Safety Plan. Safety plan has been provided to interdepartmental care team.
--- NOTE | 2024-10-17 08:51 | PDOC.CMSAFE ---
Date of service: 10/17/24 Time of Service: 08:51 Care Management Safety Plan Status Status: Voluntary Reason for Wait Reason for Wait: Inpatient Admission (awaiting placement at an Inpatient rehab) Safety Plan Safety Plan: VOLUNTARY FOR INPATIENT PSYCHIATRIC STABILIZATION.? Patient is appropriate in all interactions since arriving at [facility]; Pt has demonstrated appropriate coping and communication skills and has articulated needs, concerns and is fully engaged during staff interactions. Safety plan has been established with patient, and care team, to adhere to patient goals, identify restrictions based on behavioral status, address nutrition, and determine allowed personal belongings, tools for hygiene and personal care. Determine level of activity including ambulation, level of supervision, visitors, and determine privileges based on behaviors and level of engagement by pt. Awaiting inpatient treatment. Per [facility] referrals are sent to [facility] [place], [facility], [facility] and [facility]. SAFETY PLAN: 1. Will remain on suicide precautions, in paper clothes 2. Will remain in Zone B under direct supervision of one-on-one staff at all times provided by [employer]; EMMANUEL, BRAND MARKETING COORDINATOR admitting office escort. 3. May have paper cups, plates, finger foods as well as a cardboard spoon with which to eat meals. 4. Follow [facility] Management of the Admitted Behavioral Health Patient policy. 5. Shower available in Zone B without restriction. 6. Personal belongings-soft items permitted at RN discretion. 7. Visitors- none at this time. 8. Activities: soft cart items approved per RN discretion. 9.? Bathroom available in Zone B without restriction. 10. Phone: incoming/outgoing calls limited to [facility] cordless phone at RN discretion. Due to VOLUNTARY status, if patient wishes to leave [facility], staff will contact [facility] Crisis Screener ([phone]) and Dental Technician Apprentice ([phone]) as soon as possible. In the event of elopement, notify [place] [employer] ([phone]). Patient is currently voluntarily at [facility] and seeking inpatient admission when a bed becomes available. [facility] Frontline Vp Business Development will continue seeking placement. Please contact the Dental Technician Apprentice ([phone]) and [facility] Vp Business Development ([phone]) for any needed changes in the Safety Plan. Safety plan has been provided to interdepartmental care team.
--- NOTE | 2024-10-17 09:17 | NUR.NOTE ---
appears to be sleeping. tv is on. has remained in bed since arrival.Nursing Note:
--- NOTE | 2024-10-17 10:02 | NUR.NOTE ---
asleep in her bed, covered with blanket, tv is on.Nursing Note:
--- NOTE | 2024-10-17 10:48 | NUR.NOTE ---
still asleep. tv is on.
--- NOTE | 2024-10-17 11:27 | NUR.NOTE ---
still in bed sleeping. tv is on.Nursing Note:
--- NOTE | 2024-10-17 11:45 | NUR.NOTE ---
appears to be sleeping. tv is on.Nursing Note:
--- NOTE | 2024-10-17 12:26 | NUR.NOTE ---
continues to sleep.Nursing Note:
--- NOTE | 2024-10-17 13:00 | NUR.NOTE ---
continues to sleep. has turned over. tv is on.Nursing Note:
--- NOTE | 2024-10-17 13:59 | NUR.NOTE ---
asleep.Nursing Note:
--- NOTE | 2024-10-17 14:31 | NUR.NOTE ---
asleep.Nursing Note:
--- NOTE | 2024-10-17 14:34 | NUR.NOTE ---
asleep, tv is on.Nursing Note:
[2024-10-17 15:24] VITALS: BP 120/79; PULSE 63; RESP 16; TEMP 37.1; O2SAT 100
--- NOTE | 2024-10-17 15:26 | NUR.NOTE ---
awake. asking for withdrawal med. given clonidine-upset that nothing else had been ordered but accepted it. given an egg salad sandwich. tried to change her bed sheets that were wet from sweat-she put a blanket over the wet spot and appears to be asleep again.Nursing Note:
--- NOTE | 2024-10-17 16:18 | ED.PROG_ITS ---
Date of service: 10/17/24 Time of Service: 15:00 Medical Decision Making In brief, this is a 41-year-old female patient with a history of polysubstance use disorder who presented with suicidal ideation in the setting of opioid withdrawal. The patient was not amenable on the last provider shift to initiation of Suboxone, and has been managed with 3 times daily clonidine. Prior to my taking over her care she was medically cleared, has been hemodynamically appropriate. During my shift she met with [facility], did endorse nausea for which she was provided with a as needed order for Zofran. She was able to tolerate p.o. intake, and was resting throughout my shift with no acute complaints. She did not require any additional interventions and was signed out to the oncoming team prior to placement. Joslyn Mcdonough MD Medical Records Medical records reviewed: Yes I reviewed the patient's medical records. Lab Data Lab results reviewed: Yes I reviewed the patient's lab results. Quality:SDOH Health Related Social Needs: Health related social needs inadequate housing(Z59.1), housing instability, housed, with risk of homelessness(Z59.811), food insecurity(Z59.41) Discharge Plan Discharge Details Chief Complaint: DrugWithdr/MAT Clinical Impression: Opiate withdrawal, Depression Primary Care Provider: None,None ED Provider: Joslyn Mcdonough Home Meds and New Rx's Prescriptions: No Action No Known Home Meds
--- NOTE | 2024-10-17 16:34 | NUR.NOTE ---
is asleep. has talked to mental health. ate egg salad sandwich. now asleep again.Nursing Note:
--- NOTE | 2024-10-17 16:55 | NUR.NOTE ---
asleep.Nursing Note:
--- NOTE | 2024-10-17 17:32 | NUR.NOTE ---
asleep. has not been up since the last note.Nursing Note:
--- NOTE | 2024-10-17 20:13 | PDOC.MHPN2 ---
Date of service: 10/17/24 Time of Service: 15:42 Mental Health Emergency Note Release [facility] release signed:: No Reason for Visit SI/SA In the last 2 weeks has the pt presented for ES prior to today?: No Impression Client is a 49 year old female presenting at [facility] for a reassessment via [facility] awaiting voluntary placement at [facility]. Ct presents oriented across all spheres, dressed in paper scrubs, and was observed lying down and sleeping at the start of the reassessment. Ct reported not feeling well, identifying symptoms of withdrawal, nausea, and fatigue. Minimal engagement was noted due to ct's reported discomfort, with ct observed speaking softly while face remained in a pillow. Ct appeared disheveled throughout the interaction. Ct reported attempting to eat a egg salad sandwich and has been in and out of sleep. This development writer consulted with Dr. York around ct symptoms and reported would put in order for nausea medication and clonidine that ct had asked this development writer about. Plan/Disposition Recommended Disposition: Hospitalization facilities contacted. Plan: Awaiting voluntary placment referrals submitted to [facility], [facility], [facility] and [facility] [place] [place] Person reported agreement to plan: Yes Reports/communication Outcome discussed with: ED/Personnel (Dr. York, Charley Peterson )
[2024-10-17 20:30] VITALS: BP 138/69; PULSE 59; RESP 16; TEMP 36.6; O2SAT 100
[2024-10-17] MEDS: Ondansetron O.D.T. 4 MG TABEF PO (20:51)
[2024-10-17] MEDS: Buprenorphine/Naloxone 8 mg/2 mg FILM 1 EACH SL ×2 (20:52→22:24)
[2024-10-17 21:25] VITALS: BP 109/66; PULSE 59; RESP 16; TEMP 36.8; O2SAT 100
[2024-10-17] MEDS: Buprenorphine/Naloxone 4 mg/1 mg FILM 1 EACH SL ×2 (21:30→21:34)
[2024-10-17 22:04] VITALS: BP 141/72; PULSE 61; RESP 20; TEMP 37.3; O2SAT 100
[2024-10-17] MEDS: cloNIDine 0.1 MG TAB 0.2 MG PO (22:29)
[2024-10-17 22:58] VITALS: BP 137/80; PULSE 57; RESP 16; TEMP 37.3; O2SAT 100
[2024-10-17] MEDS: traZODone 50 MG TAB PO (23:44)
--- NOTE | 2024-10-18 06:22 | W.EDPROG ---
Date of service: 10/17/24 Time of Service: 22:30 Medical Decision Making This patient was signed out to me. Please see previous notes for H&P and initial eval. In brief, 49yo F here with opiate withdrawal and passive SI, medically cleared, started suboxone today. Pending voluntary placement. Difficulty sleeping; requested trazodone which she has taken in the past. Given 50mg tonight and ordered HS PRN going forward. Will be signed out to oncoming physician, plan remains as above. Quality:SDOH Health Related Social Needs: Health related social needs inadequate housing(Z59.1), housing instability, housed, with risk of homelessness(Z59.811), food insecurity(Z59.41) Discharge Plan Discharge Details Chief Complaint: DrugWithdr/MAT Clinical Impression: Opiate withdrawal, Depression Primary Care Provider: None,None ED Provider: Gilda Villarreal Home Meds and New Rx's Prescriptions: No Action No Known Home Meds
--- NOTE | 2024-10-18 08:47 | NUR.NOTE ---
0847 [facility] [place] declined patient due to financal reasons. Nursing Note:
--- NOTE | 2024-10-18 08:55 | NUR.NOTE ---
Nursing Note:Patient refused to have her VS taken. Patient also refused her 0830 medication. Patient stated to the EMMANUEL Lyn that she only wanted to sleep
--- NOTE | 2024-10-18 14:30 | PDOC.MHPN2 ---
Date of service: 10/18/24 Time of Service: 11:10 Mental Health Emergency Note Release [facility] release signed:: Yes Reason for Visit In the last 2 weeks has the pt presented for ES prior to today?: No Plan/Disposition Recommended Disposition: Hospitalization facilities contacted. Plan: Client is awaiting inpatient voluntarily for dual diagnosis including substance misuse. Reports/communication Outcome discussed with: ED/Personnel and Other
[2024-10-18] MEDS: Buprenorphine/Naloxone 8 mg/2 mg FILM 2 EACH SL (15:20)
[2024-10-18 15:38] VITALS: BP 128/84; PULSE 65; RESP 16; TEMP 36.5; O2SAT 100
--- NOTE | 2024-10-18 16:00 | W.EDPROG ---
Date of service: 10/18/24 Time of Service: 16:01 Medical Decision Making Care assumed from outgoing provider. Patient is currently pending inpatient psychiatric placement voluntarily. She has history of opiate withdrawal and has been started on Suboxone with improvement in her withdrawal symptoms. There have been no issues today. 1830 While I was in a procedure, the patient requested to leave immediately. Unfortunately I was unable to assess the patient. HENRY Pennington conducted a face to face and AMA'd the patient as she refused to stay and allow me to evaluate her. Quality:SDOH Health Related Social Needs: Health related social needs inadequate housing(Z59.1), housing instability, housed, with risk of homelessness(Z59.811), food insecurity(Z59.41) Discharge Plan Disposition Patient Disposition: Against Medical Advice Condition: Stable Discharge Details Clinical Impression: Opiate withdrawal, Depression Primary Care Provider: None,None ED Provider: Delon Pennington Home Meds and New Rx's Prescriptions: No Action No Known Home Meds Discharge Instructions Instructions: Drug Misuse and Addiction (DC), Leaving Against Medical Advice Additional Instructions: You were discharged from the [facility] emergency department after presenting for drug withdrawal, you deny suicidal or homicidal ideation, I am not familiar with what is going on with your care and you were refusing to wait for your provider to discuss discharge planning. He stated he wanted to leave AGAINST MEDICAL ADVICE, you are voluntary and it is within your rights to do this, you are sober and making clear decisions.
--- NOTE | 2024-10-18 17:05 | CMSP_ITS ---
Date of service: 10/18/24 Time of Service: 17:05 Care Management Safety Plan Status Status: Voluntary Reason for Wait Reason for Wait: Inpatient Admission Safety Plan Safety Plan: VOLUNTARY FOR INPATIENT PSYCHIATRIC STABILIZATION.? Patient is appropriate in all interactions since arriving at [facility]; Pt has demonstrated appropriate coping and communication skills, has articulated her needs and concerns and is fully engaged during staff interactions. Safety plan has been established with patient, and care team, to adhere to patient goals, identify restrictions based on behavioral status, address nutrition, and determine allowed personal belongings, tools for hygiene and personal care. Determine level of activity including ambulation, level of supervision, visitors, and determine privileges based on behaviors and level of engagement by pt. VOLUNTARY SAFETY PLAN: 1. Will remain on suicide precautions, in paper clothes 2. Will remain in Zone B under direct supervision of one-on-one staff at all times provided by [employer]; EMMANUEL, HARVESTING CONTRACTOR pencil inspector. 3. May have paper cups, plates, finger foods as well as a cardboard spoon with which to eat meals. 4. Follow [facility] Management of the Admitted Behavioral Health Patient policy. 5. Shower available in Zone B without restriction. 6. Personal belongings-soft items permitted at RN discretion. 7. Visitors-none at this time. 8. Activities: soft cart items approved per RN discretion. 9.? Bathroom available in Zone B without restriction. 10. Phone: limited to [facility] cordless phone at RN discretion. Due to VOLUNTARY status, if patient wishes to leave [facility], staff will contact [facility] Crisis Screener ([phone]) and Environmental Quality Analyst ([phone]) as soon as possible. In the event of elopement, notify [facility] Police ([phone]). Patient is currently voluntarily at [facility] and seeking inpatient admission when a bed becomes available. [facility] Frontline Double Surface Operator will continue seeking place ent. Please contact the Environmental Quality Analyst ([phone]) and [facility] Double Surface Operator ([phone]) for any needed changes in the Safety Plan. Safety plan has been provided to interdepartmental care team.
--- NOTE | 2024-10-18 17:05 | PDOC.CMSAFE ---
Date of service: 10/18/24 Time of Service: 17:05 Care Management Safety Plan Status Status: Voluntary Reason for Wait Reason for Wait: Inpatient Admission Safety Plan Safety Plan: VOLUNTARY FOR INPATIENT PSYCHIATRIC STABILIZATION.? Patient is appropriate in all interactions since arriving at [facility]; Pt has demonstrated appropriate coping and communication skills, has articulated her needs and concerns and is fully engaged during staff interactions. Safety plan has been established with patient, and care team, to adhere to patient goals, identify restrictions based on behavioral status, address nutrition, and determine allowed personal belongings, tools for hygiene and personal care. Determine level of activity including ambulation, level of supervision, visitors, and determine privileges based on behaviors and level of engagement by pt. VOLUNTARY SAFETY PLAN: 1. Will remain on suicide precautions, in paper clothes 2. Will remain in Zone B under direct supervision of one-on-one staff at all times provided by [employer]; EMMANUEL, JEWELRY SALES COORDINATOR regulatory assistant. 3. May have paper cups, plates, finger foods as well as a cardboard spoon with which to eat meals. 4. Follow [facility] Management of the Admitted Behavioral Health Patient policy. 5. Shower available in Zone B without restriction. 6. Personal belongings-soft items permitted at RN discretion. 7. Visitors-none at this time. 8. Activities: soft cart items approved per RN discretion. 9.? Bathroom available in Zone B without restriction. 10. Phone: limited to [facility] cordless phone at RN discretion. Due to VOLUNTARY status, if patient wishes to leave [facility], staff will contact [facility] Crisis Screener ([phone]) and Slot Machine Floor Person ([phone]) as soon as possible. In the event of elopement, notify [facility] Police ([phone]). Patient is currently voluntarily at [facility] and seeking inpatient admission when a bed becomes available. [facility] Frontline Crane Operator Cab will continue seeking placement. Please contact the Slot Machine Floor Person ([phone]) and [facility] Crane Operator Cab ([phone]) for any needed changes in the Safety Plan. Safety plan has been provided to interdepartmental care team.
--- NOTE | 2024-10-18 18:12 | W.EDPROG ---
Date of service: 10/18/24 Time of Service: 18:12 Medical Decision Making Patient is asking to be discharged, I responded to Zone B after discussion with the patient, they do not want paperwork or to wait for anything, is well-documented and they are calm and making clear decisions that they want to leave, they have denied SI and HI throughout the entire visit and they were here for substance abuse issues. I counseled the patient that I am not their current provider and have not taken any signout on them but they reassured me that they are not suicidal or homicidal and want to be discharged home and are completely voluntary. I discussed that this would be AGAINST MEDICAL ADVICE as they were here for mental health issues and I have not spoken with any mental health providers on their behalf, the patient was comfortable with this disposition and will discharge home AGAINST MEDICAL ADVICE. Medical Records Medical records reviewed: Yes I reviewed the patient's medical records. Lab Data Lab results reviewed: Yes I reviewed the patient's lab results. Labs: Laboratory Tests Range/Units 10/17/24 02:00 WBC (4.4-10.8) 10^3/uL 10.77 RBC (3.93-5.22) 10^6/uL 4.92 Hgb (11.2-15.7) g/dL 12.5 Hct (36.0-46.0) % 40.3 MCV (80-95) fL 82 MCH (27.0-33.0) pg 25.4 L MCHC (32.0-36.0) % 31.0 L RDW (11.7-14.6) % 16.7 H Plt Count (130-400) 10^3/uL 330 MPV (8.0-11.0) fL 10.5 Immature Gran % % 0.2 Neutrophils % % 74.3 Lymphocytes % % 17.8 Monocytes % % 6.9 Eosinophils % % 0.3 Basophils % % 0.5 Nucleated RBC % (0.0-0.3) % 0.0 Absolute Neutrophils (1.2-6.7) 10^3/uL 8.01 H Absolute Lymphocytes (1.2-3.4) 10^3/uL 1.92 Absolute Monocytes (0.1-0.8) 10^3/uL 0.74 Absolute Eosinophils (0.0-0.7) 10^3/uL 0.03 Absolute Basophils (0.0-0.2) 10^3/uL 0.05 Sodium (136-145) mmol/L 139 Potassium (3.5-5.1) mmol/L 3.7 Chloride (98-107) mmol/L 102 Carbon Dioxide (21.0-32.0) mmol/L 27.3 Anion Gap (3-11) mmol/L 9.7 BUN (7-18) mg/dL 14 Creatinine (0.55-1.02) mg/dL 1.0 Est GFR (CKD-EPI 2020) (mL/min/1.73m2) 69.49 Glucose (74-106) mg/dL 80 Calcium (8.5-10.1) mg/dL 8.9 Total Bilirubin (0.2-1.0) mg/dL 0.51 AST (15-37) U/L 27 ALT (14-59) U/L 15 Alkaline Phosphatase (46-116) U/L 81 Total Protein (6.4-8.2) g/dL 8.6 H Albumin (3.4-5.0) g/dL 3.7 Urine Color (Yellow) Yellow Urine Clarity (Clear) Clear Urine pH (5-8) 6.0 Ur Specific [place] (1.005-1.025) >= 1.030 H Urine Protein (Neg-Trace) mg/dL 30 H Urine Ketones (Negative) mg/dL Trace H Urine Blood (Negative) Negative Urine Nitrite (Negative) Negative Urine Bilirubin (Negative) Small H Urine Urobilinogen (Up to 0.2) mg/dL 0.2 Ur Leukocyte Esterase (Negative) Negative Urine RBC (0-2) HPF 0-2 Urine WBC (0-5) HPF 0-2 Ur Epithelial Cells (Negative) HPF Moderate Urine Crystals (Negative) HPF Negative Urine Bacteria (Negative) HPF Rare Urine Casts (Negative) LPF 3-5 Hyaline Urine Mucus (Negative) Trace Ur Culture Indicated? No Urine Glucose (Negative) mg/dL Negative Urine Opiates Screen (Negative) Negative Urine Methadone Screen (Negative) Negative Ur Barbiturates Screen (Negative) Negative Ur Tricyclics Screen (Negative) Negative Ur Amphetamines Screen (Negative) Negative U Benzodiazepines Scrn (Negative) Negative Urine Cocaine Screen (Negative) Positive A Ur THC Screen (Negative) Positive A Ethyl Alcohol (<10) mg/dL < 3.0 Quality:SDOH Health Related Social Needs: Health related social needs inadequate housing(Z59.1), housing instability, housed, with risk of homelessness(Z59.811), food insecurity(Z59.41) Discharge Plan Disposition Patient Disposition: Against Medical Advice Condition: Stable Discharge Details Clinical Impression: Opiate withdrawal, Depression Primary Care Provider: None,None ED Provider: Delon Pennington Home Meds and New Rx's Prescriptions: No Action No Known Home Meds Discharge Instructions Instructions: Drug Misuse and Addiction (DC), Leaving Against Medical Advice Additional Instructions: You were discharged from the [facility] emergency department after presenting for drug withdrawal, you deny suicidal or homicidal ideation, I am not familiar with what is going on with your care and you were refusing to wait for your provider to discuss discharge planning. He stated he wanted to leave AGAINST MEDICAL ADVICE, you are voluntary and it is within your rights to do this, you are sober and making clear decisions.
== END 2024-10-18 18:40 | disposition left against medical advice (07) ==
PROVIDERS: Student in an Organized Health Care Education/Training Program; Emergency Provider Physician Assistant
DX: F11.13 Opioid abuse with withdrawal (principal); F32.A Depression, unspecified; F19.10 Other psychoactive substance abuse, uncomplicated; F17.210 Nicotine dependence, cigarettes, uncomplicated; F17.290 Nicotine dependence, other tobacco product, uncomplicated; Z53.29 Procedure and treatment not carried out because of patient's decision for other reasons
CPT/HCPCS: 00123; 80053; 80307; 81025; 96127; 99285; 80320; 81003; 81015; 85025